=== PATIENT | female | born 1950 | race Caucasian/White ===

== ENCOUNTER 2024-11-04 09:17 | Outpatient (AMB) | payer MEDICARE, SELFPAY ==
--- NOTE | 2024-11-04 09:37 | A.OFFVIS_ITS ---
Intake Visit Reasons: last seen 2015 PN Allergies No Known Allergies Allergy (Verified 11/03/24 15:48) Medication List - Last Reconciled 11/04/24 by Prema Velasquez MD desmopressin 0.2 mg PO BEDTIME famotidine 40 mg PO BEDTIME flecainide mg PO Q12H folic acid 0.4 mg PO DAILY gabapentin 100 mg PO BID lorazepam mg PO DAILY methotrexate sodium 15 mg PO QWEEK metoprolol succinate ER 50 mg PO DAILY quetiapine 50 mg PO BEDTIME quetiapine 25 mg PO BEDTIME HPI Comments Details: This is 74-year-old generally healthy woman with a history of anxiety who comes in Pain in both knees that has been painful. 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 She is in no pain generally unless she touches or squeezes it with her hand from mid thigh down. 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 In the pat she had insomnia since August 2014 which has resolved. She has some elements of depression. She has tried Ambien, Ambien CR, Lunesta and Sonata without relief. For 8 years she had been on Benadryl 50 mg at bedtime for sleep. [facility] Medical History (Updated 11/04/24 @ 10:09 by Prema Velasquez MD) Chidi syndrome APS (antiphospholipid syndrome) Other specified disorders involving the immune mechanism, not elsewhere classified Chronic fatigue, unspecified Insomnia Surgical History (Updated 11/04/24 @ 10:09 by Prema Velasquez MD) History of eye surgery Social History (Updated 11/02/24 @ 23:34 by Cassie Ko MA) Patient Tobacco Use Status: Never used Tobacco Review of Systems Const Details: Sleep Difficulty getting to sleep?denies.?Difficulty maintaining sleep?denies?.?Urge to move legs?denies.?Teeth grinding?denies.?Shouting or Kicking during sleep ?denies.?Abnormal behavior during sleep?denies.?Excessive sleep?denies.?Snoring ?denies.?Daytime sleepiness?denies. ? General/Constitutional Change in appetite?denies.?Chills?denies.?Fatigue?denies.?Fever?denies.?Weight gain?denies.?Weight loss?denies. ? Ophthalmologic Blurred vision?denies.?Diminished visual acuity?denies. ? ENT Stuffiness?denies.?Decreased hearing?denies.?Dry mouth?denies.?Ear pain ?denies.?Nosebleed?denies.?Ringing in the ears?denies.?Sinus pain?denies.?Sore throat?denies.?Swollen glands?denies. ? Endocrine Cold intolerance?denies.?Excessive thirst?denies.?Frequent urination?denies.? Heat intolerance?denies. ? Respiratory Shortness of breath?denies.?Chest pain?denies.?Cough?denies. ? Breast Breast lump?denies.?Nipple discharge?denies. ? Cardiovascular Chest pain at rest?denies.?Chest pain with exertion?denies.?Claudication ?denies.?Dizziness?denies.?Fluid accumulation in the legs?denies.?Irregular heartbeat?denies.?Palpitations?denies. ? Gastrointestinal Abdominal pain?denies.?Constipation?denies.?Diarrhea?denies.?Difficulty swallowing?denies.?Heartburn?denies.?Nausea?denies.?Rectal bleeding?denies. ? Hematology Easy bruising?denies.?Prolonged bleeding?denies. ? Genitourinary Frequent urination?denies.?Urgency?denies.?Incontinence?denies.?Erectile Dysfunction?denies. ? Musculoskeletal Neck pain?denies.?Back pain?denies.?Muscle aches?denies.?Painful joints?yes.? Sciatica?denies.?Weakness?denies. ? Podiatric Difficulty walking?denies.?Foot numbness?denies. ? Neurologic Difficulty swallowing?denies.?Balance difficulty?denies.?Coordination?normal.? Difficulty speaking?denies.?Dizziness?denies.?Fainting?denies.?Gait abnormality ?denies.?Headache?denies.?Loss of strength?denies.?Loss of use of extremity ?denies.?Low back pain?denies.?Memory loss?denies.?Seizures?denies.?Tics ?denies.?Tingling/Numbness?denies.?Transient loss of vision?denies.?Tremor ?denies. ? Psychiatric Anxiety?denies.?Auditory/visual hallucinations?denies.?Delusions?denies.? Depressed mood?denies.?Stressors?denies.?Substance abuse?denies.?Suicidal thoughts?denies. Physical Exam Neuro Other: Abnormal neurological findings:?blunting of pin prick in left foot and impaired vibration. Collapsed arches on left. Decreased left ankle reflex. Mental Status:alert and oriented X 3,?Normal attention, orientation, memory and affect. Cranial Nerves:Pupils are equal, round and reactive to light. Fundoscopy shows normal disc bilaterally. External occular muscles are intact. Visual dinero are full, no ptosis. Face is symmetrical, no facial weakness or droop. Facial sensations are normal. Tongue protrudes in midline. Palate elevates symmetrically. Shoulder shrugging is normal.. Motor Examination:Normal muscle tone, bulk and strength,?No atrophy or fasciculations,?No drift of the extended upper extremities,?Deep tendon reflexes are 2+ diminishe dleft ankle reflex?,?Plantars are flexor?. Motor Strength: ? Proximal Muscles (out of 5): ?5 ? Distal Muscles (out of 5): ?5 ? Neck Flexors (out of 5): ?5 ? Neck Extensors (out of 5): ?5 ? Deltoid (out of 5): ?5 ? Biceps (out of 5): ?5 ? Triceps (out of 5): ?5 ? Serratus Anterior (out of 5): ?5 ? Wrist Extensors (out of 5): ?5 ? APB (out of 5): ?5 ? Finger Spread (out of 5): ?5 ? Ileopsoas (out of 5): ?5 ? Quadriceps (out of 5): ?5 ? Hamstrings (out of 5): ?5 ? Tibialis Anterior (out of 5): ?5 ? Peronei (out of 5): ?5 ? EDB (out of 5): ?5 ? Gastrocnemius (out of 5): ?5 Straight Leg Raisin degrees. Sensory Exam: As above, otherwise Normal light touch, temperature, pinprick, vibration and joint-position sensations?,?Rhomberg sign is absent. Coordination:no ataxia,?no titubation,?[id number], [id number] test and rapid alternating movements were normal. Gait Exam:Within normal limits. Cerebellar Signs:Lqxnae-[id number]-idue and male-ec-wmvo is normal,?no dysdiadochokinesia?. Extrapyramidal System:No tremor, rigidity with normal facial expressions,?No bradykinesia, no bradyphrenia. Normal arm swing and posture. No propulsion or retropulsion. Speech:Normal,?no dysphasia or dysarthria.. Mini Mental Status Exam: Level of Consciousness:Alert. Orientation:Knows correct year, month, date, day and season,?Knows correct city, county and state. Knows correct location and floor. Registration:Able to register 3 objects. Attention:Serial 7's performed accurately. Recall:Able to recall 3 out of 3 objects. Language:Normal spontaneous speech, fluency, repetition,naming, comprehension, reading and writing. Total Score 30/30. General Examination: GENERAL APPEARANCE:normal,?in no acute distress. HEAD:normocephalic,?atraumatic. EYES:sclera non-icteric,?conjunctiva clear. EARS:auditory canal clear,?tympanic membrane intact, clear. NOSE:no lesions. ORAL CAVITY:gums normal,?mucosa moist,?no lesions. THROAT:clear. NECK/THYROID:no cervical lymphadenopathy,?thyroid normal,?neck supple, full range of motion,?no carotid bruit. SKIN:no rashes,?no significant birthmarks. HEART:S1, S2 normal,?no murmurs. LUNGS:clear anteriorly and posteriorly. CHEST:no gross rib deformity,?clear to auscultation. BACK:normal exam of spine. EXTREMITIES:no edema. PERIPHERAL PULSES:normal. PSYCH:alert, oriented,?cognitive function intact,?cooperative with exam. Assessments Assessment & Plan Assessment & Plan (1) Peripheral neuropathy: Code(s): G62.9 - Polyneuropathy, unspecified Category: Medical (2) Rheumatoid arthritis: Code(s): M06.9 - Rheumatoid arthritis, unspecified Category: Medical (3) Osteoarthritis of knees, bilateral: Code(s): M17.0 - Bilateral primary osteoarthritis of knee Category: Medical Plan Gradually increase Gabapentin to 300mg tid. Add meloxicam for the knee pain Medications: New gabapentin 300 mg PO TID 90 caps 5RF 30 days meloxicam 15 mg PO DAILY 30 tabs 2RF 30 days Coding Level of Care Code New Pt Level 5 (55996) Diagnoses Peripheral neuropathy G62.9 Rheumatoid arthritis M06.9 Osteoarthritis of knees, bilateral M17.0
--- OUTSIDE RECORDS SUMMARY | 2024-11-04 09:42 | XMS_ITS | Data Portability ---
Author Organization [place] [facility] Arsen Wray [facility] [place] Address [address] [place] [address] Care Team Providers Care Geological Sample Tester Name Role Phone AYDEE VARGAS Primary Care Provider AYDEE VARGAS Primary Care Provider Assessment Encounter Date Assessment Date Assessment LastModified by Organization Details LastModified Time 01/09/2023 01/09/2023 HPI : Patient is doing well 2 weeks status post right TKA. They deny fever, chest pain and shortness of breath. They are compliant with anticoagulation protocol. She has not encountered any problems and is pleased with the results of her surgery so far. She has done home physical therapy and will be switching over to outpatient PT. She is using only Tylenol and meloxicam for pain control and is compliant with aspirin for DVT prophylaxis. Physical Exam : Patient is well nourished, well- developed, in no acute distress, with appropriate mood and affect. The patient demonstrates good knee motion and strength. The incision is clean and dry with no sign of infection. Negative calf tenderness and Ilia's sign. Range of motion is from 0-120 degrees. Assessment/Plan : The patient is doing well 2 weeks from total knee arthroplasty. Continue 28 day course of anticoagulation therapy. The patient will do physical therapy and return for follow-up in 1 month for re-evaluation; sooner with any problems. Not available 01/09/2023 14:07:26 02/06/2023 02/06/2023 HPI : Patient is here for a 6 week follow-up from a right TKA. She is recovering well. She is walking without assist device. She is getting above 120 degrees of flexion with physical therapy. She is happy with her progress. She still does have some nighttime pain. She is still having some discomfort with certain motion. Physical Exam : Patient is well nourished, well- developed, in no acute distress, with appropriate mood and affect. The patient is AAOx3. The patient demonstrates good knee motion and strength. The incision is well healed.Right knee range of motion 0 to 125 degrees. Assessment/Plan : The patient is functioning well 6 weeks from total knee arthroplasty. Continue physical therapy as needed. Return for follow-up in 2 months with x-rays at that time. X-rays will be of the bilateral knees, because that will also be about 1 year follow-up from her left total knee. Not available 02/06/2023 15:06:39 04/03/2023 04/03/2023 HPI : Patient is here for 1 year follow-up for a LEFT total knee replacement and 3-1/2 months status post right-sided total knee arthroplasty. Patient reports good pain relief in the knee and satisfactory yarsani of function in terms of activities of daily living. Current condition is improved relative to their pre operative condition. They have not encountered any major problems since their last office visit. She is very pleased with the mid and long-term results of her right and left knee replacement arthroplasties, respectively. She has not encountered any problems. She is back to high level of comfort and function. Physical Exam : Patient is well nourished, well-developed, in no acute distress, with appropriate mood and affect. The patient is oriented to time, place, and person. Respirations are even and unlabored. The affected limbs are well-perfused, with well healed skin incision. The patient demonstrates good knee motion, stability, and strength. The knees move from 0-130 degrees. Muscle strength is normal. Pedal pulses are palpable. Assessment/Plan : This patient is functioning well after total knee arthroplasty. Continue knee conditioning exercises. [id number] medications as needed. The patient understands that ultimate failure may occur due to mechanical wear, loosening or breakage. Follow-up at approximately one year post-op for the right knee and 5 years postop for the left knee is recommended to assess for the possibility of failure. Follow up sooner with any problems. A total of 30 minutes were spent reviewing previous charting, obtaining history and physical exam, and reviewing treatment plan. This patient was seen and evaluated by Chad Garner MS, RIMA in indirect conjunction with documenting/[facility] provider Tyrone Limon MD. He agrees with history, physical examination, tests/diagnostic imaging, and treatment plan. Not available 04/03/2023 11:15:48 09/12/2023 09/12/2023 HPI : Patient is here for follow-up for her staged bilateral total knee replacements. She is about 2 years from the left total knee replacement. She is about 1 year from the right total knee replacement. She notes that the pain she had preoperatively is gone. She has different pain and she is not sure if some of this pain was there before surgery. The pain goes from the thigh down to the ankle. She is sensitive to the touch throughout this area. She does not have a history of lumbar spine issues. Physical Exam : Patient is well nourished, well-developed, in no acute distress, with appropriate mood and affect. The patient is oriented to time, place, and person. Respirations are even and unlabored. There is no inguinal adenopathy. The affected right limb is well-perfused, with well healed skin incision. The patient demonstrates good knee motion, stability, and strength. The knee moves from 0-125 degrees. The alignment of the knee is neutral. Muscle strength is normal. Pedal pulses are palpable. The affected left limb is well-perfused, with well healed skin incision. The patient demonstrates good knee motion, stability, and strength. The knee moves from 0-125 degrees. The alignment of the knee is neutral. Muscle strength is normal. Pedal pulses are palpable. Hip examination, including flexion and internal rotation, was negative in that groin pain was not produced. Assessment/Plan : Patient is doing well in regards to her staged bilateral total knee replacement. Exam, imaging, and history do not show any signs of implant related issues including loosening, malposition, instability, periprosthetic fracture, or infection. I discussed with her that I do not think her issues are coming from the knee replacements. She is actually in agreement with this. Knee replacements typically would not cause pain radiating from the thigh to the ankle. I am recommending that she gets evaluated by our spine team with further workup from there. Not available 09/12/2023 14:29:22 10/01/2023 10/01/2023 Generally health y 73-year-old woman referred by Dr. Limon for evaluation of her lumbar spine. She is status post bilateral total knee arthroplasty. She has issues with tenderness throughout her lower extremities. She has bilateral knee pain. The pain is not worse with standing or walking. She has had variable low back pain for decades. She denies numbness or tingling in her legs. She does not perceive focal lower extremity weakness. She has no difficulty sleeping. She has no sphincter disorder. She denies fever chills sweats or unexplained weight loss. As noted she has had decades of intermittent nondisabling low back pain. She underwent a left total knee arthroplasty about a year ago. Her right knee was done approximately 6 months ago. Since then she has noted the tenderness. She also had some improvement of the left knee until after the right knee and now both her great deal. She notes are particularly problematic if she hits them against anything. Dr. Limon felt the implants were not problematic. Physical examination: She has a normal examination. She has 2 well-healed knee incisions. She has no weakness or tension sign. She has no pathologic reflexes. She is diffusely tender about the knees and her lower extremities. She has no true bony tenderness. I do not believe her pain is related to her spine. She has diffuse tenderness including muscular tenderness. She does not use statins. She sees a bulk gas specialist for osteoarthritis. I suggest she return to see the bulk gas specialist and ask the physician to evaluate for the possibility of inflammatory muscle or joint disease. She will continue to follow-up with Dr. Limon. No specific return appointment is scheduled with the spine service [email or web address] Not available 10/01/2023 15:00:39 Plan of Treatment Reminders Order Date Submit Date Provider Last Modified By Organization Details Last Modified Time Details Appointments None recorded. Lab None recorded. Referral None recorded. Procedures None recorded. Surgeries None recorded. Imaging XR, lumbosacral spine, 2 or 3 view, bending only 2023 024 [email or web address] [facility], [address], [place], [address], 09:49:21 XR, knee, 3 view 2023 024 [facility], [address], [place], [address], 4 15:30:15 XR, knee, 3 view 2023 024 [facility], [address], [place], [address], 4 15:30:15 XR, knee, 3 view 2022 023 [facility], [address], [place], [address], 3 11:21:57 XR, knee, 3 view 2022 023 [facility], [address], [place], [address], 3 11:21:57 Medication Orders None recorded. Patient TargetsNo targets recorded. Patient Instructions Encounter Date Encounter Id Patient Instructions Last Modified By Organization Details Last Modified Time 01/09/2023 [id number] physical therapy * - Diagnosis:s/p R TKA Evaluate and treat as indicated to reduce pain and to improve mobility, range of motion, and function. Please teach a home exercise plan and incorporate PT into patient's exercise routine. 2-3 sessions weekly for 6 weeks. [email or web address] Not available 01/16/2023 07:18:58 04/03/2023 [id number] Bilat knee X-ray series does not show any signs of implant related issues including loosening, malposition, instability, periprosthetic fracture, periosteal reaction or infection. Not available 04/03/2023 11:16:08 09/12/2023 [id number] AP, lateral, and patellar radiographs of the left knee taken today demonstrate satisfactory position and alignment of components following left total knee replacement. AP, lateral, and patellar radiographs of the right knee taken today demonstrate satisfactory position and alignment of components following right total knee replacement. Not available 09/12/2023 14:29:30 10/01/2023 [id number] Radiographs AP a nd flexion-extension lateral radiographs lumbosacral spine were obtained in the [facility] facility today. The images represent age-related normal radiographs with maintenance of disc space. There is no meaningful deformity. There is no evidence of tumor fracture or infection. [email or web address] Not available 10/01/2023 14:59:11 Reason for Referral None Reported. Problems Name Problem SNOMED Code Status Onset Date Resolution Date Notes Provider Name and Address Organization Details Recorded Time Osteoarthri tis of right knee joint 1940510734399 00 Active 2022 Tyrone Limon MD [address], [place], [address], [place] [facility] 3 12:06:11 History of right total knee replacement 0377348187427 102 Active 2022 CHAD GARNER PA-C [address], [place], [address], [place] [facility] 3 14:06:09 Tenderness of skeletal muscle 77894463 Active 2023 Jassi Nix MD [address], [place], [address], [place] [facility] 4 15:01:31 Pain of knee region 8798972700 Active 2023 Jassi Nix MD [address], [place], [address], [place] [facility] 4 15:02:20 Arthritis of knee 497443864 Active 2022 CHAD GARNER PA-C [address], [place], [address], [place] [facility] 3 14:35:17 Problem Notes None recorded. Procedures Surgical History Date Name Laterality Status Provider Name and Address Organization Details Recorded Time Knee Surgery completed Quyen Melendrez [place] - [facility] 02/06/2023 14:54:37 Knee Surgery completed Quyen Melendrez [place] [facility] 02/06/2023 14:54:37 Hysterectomy completed Virginiamarylou Nicholstino [place] [facility] 10/27/2022 11:44:02 arthroscopy of knee completed [facility] [place] [facility] 10/27/2022 11:46:57 Imaging Results None recorded. Procedure Notes None recorded. Medical Equipment None Reported. Allergies No known drug allergies Medications Name Sig Start Date Stop Date Status Note LastModified by Organization Details LastModified Time celecoxib 200 mg capsule 01/31 completed Not Available Not Available Not Available naproxen 375 mg tablet TAKE 1 TABLET BY MOUTH TWICE DAILY 01/31 completed Not Available Not Available Not Available clindamycin HCl 300 mg capsule TAKE 1 CAPSULE BY MOUTH FOUR TIMES DAILY FOR 10 DAYS 09/11 completed Not Available Not Available Not Available cetirizine 10 mg tablet TAKE 1 TABLET BY MOUTH DAILY active Not Available Not Available No t Available ofloxacin 0.3 % eye drops INSTILL 1 DROP IN RIGHT EYE FOUR TIMES DAILY 09/11 completed Not Available Not Available Not Available metoprolol succinate ER 50 mg tablet,exte nded release 24 hr TAKE 1 TABLET BY MOUTH DAILY active Not Available Not Available No t Available valacyclovi r 1 gram tablet 09/07 completed Not Available Not Available Not Available meloxicam 15 mg tablet TAKE 1 TABLET BY MOUTH DAILY. STOP NAPROXEN AND CELECOXIB 04/03 completed Not Available Not Available Not Available ondansetron HCl 4 mg tablet 10/02 completed Not Available Not Available Not Available famotidine 40 mg tablet TAKE 1 TABLET BY MOUTH DAILY AT NIGHT active Not Available Not Available No t Available prednisone 20 mg tablet TAKE 1 TABLET BY MOUTH TWICE DAILY FOR 5 DAYS 09/11 completed Not Available Not Available Not Available alendronate 70 mg tablet TAKE 1 TABLET BY MOUTH EVERY 7 DAYS active Not Available Not Available No t Available desmopressi n 0.2 mg tablet TAKE ONE TABLET BY MOUTH AT BEDTIME active Not Available Not Available No t Available triamcinolo ne acetonide 0.5 % topical ointment APPLY TOPICALLY TO THE AFFECTED AREA TWICE DAILY FOR 14 DAYS 01/31 completed Not Available Not Available Not Available folic acid 400 mcg tablet TAKE 1 TABLET BY MOUTH EVERY DAY active Not Available Not Available No t Available doxycycline monohydrate 100 mg tablet TAKE 1 TABLET BY MOUTH TWICE DAILY FOR 7 DAYS 09/11 completed Not Available Not Available Not Available cefadroxil 500 mg capsule 01/31 completed Not Available Not Available Not Available prednisolon e acetate 1 % eye drops,suspe nsion SHAKE BOTTLE AND INSTILL 1 DROP INTO THE RIGHT EYE EVERY MORNING active Not Available Not Available No t Available lorazepam 0.5 mg tablet TAKE 1 TABLET BY MOUTH DAILY NEEDED FOR ANXIETY active Not Available Not Available No t Available methocarbam ol 750 mg tablet 01/31 completed Not Available Not Available Not Available chlordiazep oxide 25 mg capsule TAKE TWO CAPSULES BY MOUTH AT BEDTIME 01/31 completed Not Available Not Available Not Available methotrexat e sodium 2.5 mg tablet TAKE 6 TABLETS BY MOUTH 1 TIME A WEEK ON THE SAME DAY. STOP FOR ANY COLD OR INFECTION active Not Available Not Available No t Available trazodone 100 mg tablet 01/31 completed Not Available Not Available Not Available amitriptyli ne 10 mg tablet 01/31 completed Not Available Not Available Not Available prednisone 2.5 mg tablet TAKE 3 TABLETS BY MOUTH EVERY DAY 09/07 completed Not Available Not Available Not Available pantoprazol e 40 mg tablet,bobby yed release TAKE 1 TABLET BY MOUTH TWICE DAILY 09/11 completed Not Available Not Available Not Available erythromyci n 5 mg/gram (0.5 %) eye ointment APPLY TO LEFT EYE TWICE DAILY DIRECTED 09/07 completed Not Available Not Available Not Available esomeprazol e magnesium 40 mg capsule,del ayed release TAKE ONE CAPSULE BY MOUTH EVERY DAY IN THE MORNING BEFORE BREAKFAST 01/31 completed Not Available Not Available Not Available flecainide 50 mg tablet TAKE 2 TABLETS BY MOUTH IN THE MORNING AND 1 TABLET IN THE EVENING active Not Available Not Available No t Available betamethaso ne dipropionat e 0.05 % topical cream APPLY TOPICALLY EVERY MORNING AND EVERY EVENING FOR RED PATCHES ON CHEST FOR 10 TO 14 DAYS 09/07 completed Not Available Not Available Not Available mupirocin 2 % topical ointment APPLY 1 A SMALL AMOUNT IN THE NASAL CAVITY 3 TIMES DAILY AFTER WARM COMPRESSE S 09/11 completed Not Available Not Available Not Available zolpidem 5 mg tablet TAKE 1 TABLET BY MOUTH AT BEDTIME NEEDED FOR INSOMNIA active Not Available Not Available No t Available hydroxyzine HCl 10 mg tablet TAKE 1 TABLET BY MOUTH AT BEDTIME NEEDED FOR ITCHING OR ANXIETY 09/11 completed Not Available Not Available Not Available ondansetron 4 mg disintegrat ing tablet 01/31 completed Not Available Not Available Not Available fluticasone propionate 50 mcg/actuati on nasal spray,suspe nsion active Not Available Not Available Not Available sertraline 50 mg tablet TAKE 1/2 TABLET BY MOUTH DAILY FOR 1 WEEK. INCREASE TO 1 TABLET DAILY 09/07 completed Not Available Not Available Not Available simethicone 80 mg chewable tablet CHEW 1 TABLET BY MOUTH DAILY NEEDED FOR GAS PAIN/BLOA TING active Not Available Not Available No t Available oxycodone 5 mg tablet TAKE 1 TABLET BY MOUTH EVERY 4 TO 6 HOURS NEEDED FOR POST OPERATIVE PAIN FOR UP TO 3 DAYS 09/11 completed Not Available Not Available Not Available escitalopra m 10 mg tablet TAKE 1 TABLET BY MOUTH DAILY. TAKE WITH 5MG TABLET FOR DAILY DOSE OF 15MG DAILY. 09/07 completed Not Available Not Available Not Available escitalopra m 5 mg tablet TAKE 1 TABLET BY MOUTH DAILY. TAKE WITH 10MG TABLET FOR TOTAL DOSE OF 15MG DAILY. 09/07 completed Not Available Not Available Not Available zolpidem ER 6.25 mg tablet,exte nded release,mul tiphase TAKE 1 TABLET BY MOUTH AT BEDTIME NEEDED FOR SLEEP 10/02 completed Not Available Not Available Not Available pantoprazol e DR 40 mg granules delayed-rel ease for susp in packet 10/02 completed Not Available Not Available Not Available Paxlovid 300 mg (150 mg x 2)-100 mg tablets in a dose pack TK 2 NIRMATREL VIR TS AND 1 RITONAVIR T TOGETHER PO BID FOR 5 DAYS BID FOR 5 DAYS 09/07 completed Not Available Not Available Not Available Miebo (PF) 100 % eye drops active Not Available Not Available Not Available Vitals Date Recorded Body height Body mass index (BMI) Body weight Provider Name and Address Organization Details Last Updated DateTime 10/01/2023 177.8 cm 23.8 kg/m2 [address]86.[address] [place] [facility] 10/01/2023 14:28:23 Date Recorded Body height Provider Name an d Address Organization Details Last Updated DateTime 02/06/2023 177.[address] [place] [facility] 02/06/2023 14:51:03 Date Recorded Body mass index (BMI) Body weight Provider Name and Address Organization Details Last Updated DateTime 02/06/2023 23.8 kg/m2 [address]34.[address] [place] [facility] 02/06/2023 14:54:30 Date Recorded Body height Body mass index (BMI) Body weight Provider Name and Address Organization Details Last Updated DateTime 04/03/2023 177.8 cm 23.8 kg/m2 [address]2001.[address] [facility] 04/03/2023 10:49:41 Social History None recorded. Functional Status None recorded. Mental Status None recorded. Family History Nothing Reported. Medical History Condition Response Rheumatoid Arthritis Y Gynecological HistoryNo gynecological history recorded. Obstetrics History GPAL:G 0 P 0 0 0 0 Past Encounters Encounter ID Performer Location Encounter Start Date Encounter Closed Date Diagnosis/Indication Diagnosis SNOMED-CT Code Diagnosis ICD10 Code Diagnosis Note [id number] RIMA MARTINEZ [address] [address] 09/12/2022 13:59:07 09/12/2022 16:00:12 Arthritis of knee 707693817 M13.869 [id number] MD BENITO Meneses [address] [address] 10/27/2022 11:23:37 10/27/2022 12:09:26 Osteoarthritis of right knee joint 3896945811 58990 M17.11 Arthritis of knee 098423 002 M13.869 [id number] [address] 01/09/2023 13:01:24 01/09/2023 14:08:00 History of right total knee replacement 6468954362 427521 Z96.651 [id number] MD BENITO Meneses [address] [address] 02/06/2023 14:43:29 02/06/2023 15:05:16 History of right total knee replacement 5916829577 281731 Z96.651 [id number] CHAD GARNER PA-C [address] [place] [address] 04/03/2023 10:47:31 04/03/2023 11:15:25 Pain of right knee joint 6284850964 61232 M25.561 Pain of le ft knee joint 2446136006 07179 M25.562 [id number] MD BENITO Meneses [facility] [address] [facility] [place] [address] 09/12/2023 13:30:30 09/12/2023 14:15:39 History of right total knee replacement 1547693981 714381 Z96.651 Additional diagnosis detail: History of total right knee replacemen t History of left total knee replacement 5751314340 690278 Z96.652 Additional diagnosis detail: History of total left knee replacemen t Surgical follow-up 44485 4000 Z47.1 Z96.651 Additional diagnosis detail: Aftercare following right knee joint replacemen t surgery [id number] Jassi Nix MD [address] [place] [address] 10/01/2023 14:20:19 10/01/2023 15:03:57 Low back pain 634705460 M54.50 Additional diagnosis detail: Lumbar pain Tenderness of skeletal muscle 32923432 M79.10 Additional diagnosis detail: Muscle tenderness History of operative procedure on knee 665747167 Z96.659 Additional diagnosis detail: History of arthroplas ty of knee Pain of knee region 1003 069257 M25.561 M25.562 G89.29 Additional diagnosis detail: Chronic pain of both knees Health Concerns Section Related Observation LastModified by Organization Detai ls LastModified Time None Recorded Concern Status LastModified by Organization Details LastModified Time None Recorded Advance Directives Directive None Recorded Payers Insurance Date Sequence Insurance Name Policy Number Policy Villarreal Covered Member ID Villarreal Member ID Guarantor Name 09/11/2023 1 [facility] (MEDICARE REPLACEMENT/A DVANTAGE - PPO) [id number] Crystal Burton [id number] Crystal Burton 08/30/2024 2 [place] [id number] Crystal Burton [id number] Crystal Burton 08/30/2024 1 [place] JONATHAN Burton [id number] Crystal Burton OBGyn Episode No OBEpisode recorded.
--- OUTSIDE RECORDS SUMMARY | 2024-11-04 09:42 | XMS_ITS | Patient Health Record ---
Author Organization [facility] Address [address] [place] [address] [place] [address] Care Team Providers Care Sr. Manager Name Role Phone Krista Galvan Primary Care Provider MAXIM Sweeney Unavailable [phone] Allergies Allergen (clinical drug ingredient) Drug/Non Drug Allergy documented on EMR Reaction Allergy Type Onset Date Status amoxicillin / clavulanate Augmentin Diarrhea, nausea,vomitting Drug Allergy Active Reason For Referral No Information Medications Medication SIG (Take, Route, Frequency, Duration) Notes Start Date End Date Status Gabapentin 100 MG 1 capsule Orally Three times a day Active Simethicone-80 Take 80mg by mouth Active Simethicone 80 MG 1 tablet after meals and at bedtime as needed Orally Four times a day Active Perfluorohexyloctane 1.338 GM/ML 1 drop into affected eye as needed Ophthalmic Four times a day Active DDAVP 0.2 MG as directed Orally Active Metoprolol Succinate ER 50 MG 1 tablet Orally Once a day Active Lexapro 10 MG 1 tablet Orally Once a day Active Pepcid 40 MG 1 tablet Orally Once a day Active Flecainide Acetate 50 MG as directed Orally Active Lactobacillus Take 100 Million PFU by mouth Active Ativan 0.5 MG 1 tablet at bedtime as needed Orally Once a day Active prednisoLONE Acetate 1 % 1 drop into affected eye Ophthalmic Twice a day Not-Taking Zolpidem Tartrate ER 6.25 MG 1 tablet at bedtime as needed Orally Once a day Not-Taking Tambocor 50 mg , take 1 tablet by mouth. 1 tab am and 2 tabs pm Not-Taking Fluticasone Propionate 50 MCG/ACT 1 spray in each nostril Nasally Once a day Not-Taking Multiple Vitamin - 1 tablet Orally Once a day Active Folic Acid 400 MCG 1 tablet Orally Once a day Active Methotrexate Sodium 2.5 MG as directed Orally Take 6 tablets by mouth , every Sunday Active Iron-Vitamin C 65-125 MG 1 tablet Orally Once a day Active Tylenol 8 Hour 650 MG 2 tablets as needed Orally every 8 hrs Active Calcium 600 MG 1 tablet with meals Orally Twice a day Active Problems Problem Type SNOMED Code ICD Code Onset Dates Problem Status W/U Status Risk Notes Problem [id number] Acquired hallux rigidus of right foot (M20.21) Active confirmed Problem 464689737 Rheumatoid arthritis involving multiple sites with positive rheumatoid factor (M05.79) Active confirmed Problem [id number] 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 Vital Signs Weight 164.3 lbs 01/08/2024 Encounters Encounter Location Date Provider Diagnosis [facility] [address] 01/08/2024 MAXIM CROOKS Arthrosis of left midfoot M19.072 ; Varus deformity of left great toe M20.32 ; Acquired pes planovalgus of left foot M21.42 ; Acquired hallux rigidus of right foot M20.21 ; Acquired deformity of right toe M20.61 and Rheumatoid arthritis involving multiple sites with positive rheumatoid factor M05.79 [facility] [address] [id number] 12/26/2023 MAXIM CROOKS Assessments Encounter Date Diagnosis (ICD Code) Assessment Notes Treatment Notes Treatment Clinical Notes Section Notes 01/08/2024 Arthrosis of left midfoot (ICD-10 - M19.072) 01/08/2024 Varus deformity of left great toe (ICD-10 - M20.32) 01/08/2024 Acquired pes planovalgus of left foot (ICD-10 - M21.42) 01/08/2024 Acquired hallux rigidus of right foot (ICD-10 - M20.21) 01/08/2024 Acquired deformity of right toe (ICD-10 - M20.61) 01/08/2024 Rheumatoid arthritis involving multiple sites with positive rheumatoid factor (ICD-10 - M05.79) This is an outpatient visit for evaluation and management of a new patient, which required appropriate review of pertinent medical history, review of any previous imaging, review of all previous records, and examination and decision-making. Time was 35 minutes spent in review of all these facets including face to face discussion with the patient regarding my findings and in discussion of a current and future treatment plan. Ms. Burton presents with complex deformity to the left forefoot and rearfoot with significant degenerative changes. She also has a complex medical history likely contributing to her progressive deformity. Unfortunately the only way the her deformities could be corrected would be with extensive surgery that would involve fusion her midfoot and rearfoot followed by a wheat marli procedure to the forefoot. This would require a very lengthy period of recovery and in the setting of her RA, neuropathy, and osteoporosis would have significant risk of failure. I discussed that to correct the toe deformity on the right she would also need a fusion of the 1st MTP and this again would come with risk and a lengthy recovery. I advise that she continue to use accommodative foot wear and spacers and avoid the risk of surgery at this time. She understood and will contemplate her options. I encouraged her to call if she has any questions or concerns. Plan Of Treatment No Information Insurance Providers Payer Name Payer Address Payer Phone Subscriber Number Group Number Insured Name Patient Relationship to Insured Coverage Start Date Coverage End Date Medicare of [place] [address] [place] [phone] [id number] GENAROCrystal Self - patient is the insured [employer] [facility] [address] [place] [address] [phone] [id number] Crystal BURTON Self - patient is the insured Medical (General) History Medical History History ICD Code Insomnia Paroxysmal atrial fibrillation osteoporosis Moderate episode of recurrent major depr essive disorder Presbyesophagus Seropositive rheumatoid arthritis (RF an d CCP Positive) Arthritis of both hands Esophageal reflux Arthritis of both knees SVT (supraventricular Tachycardia) Hx of Mycoplasma infection Gallstones Pulmonary nodules Pleural thickening allergic rhinitis Former smoker Glaucoma Hypoglycemia Hx of Aseptic Meningitis multiple times Peripheral neuropathy lower extremities Surgical History Surgery Date(Month/Year) Bilateral Knee Arthrocopy 11/2020 Cataract removal [place]; OD colonoscopy 11/16/2014 colonoscopy 09/2004 colonoscopy 02/07/2019 Bunion surgery left foot 2nd toe pin 200 2 Hysterectomy 09/2017 Left knee arthroscopy 2018 Tubal ligation [place] Unlisted Procedure Anterior Segment E ye 10/06/2006 [place] CORRJ HLX VLGS BNCTY SESMDC W/DOUBLR OSTEOTOMY [place] Unlisted Procedure Hands/ Fingers- for cystic swelling in right wrist-tenosynovitis [place] Upper GI Endoscopy preformed 11/17/19 15 [place] Upper GI Endoscopy preformed 02/08/20 19
--- OUTSIDE RECORDS SUMMARY | 2024-11-04 09:42 | XMS_ITS | Clinical Summary ---
Author Organization [facility] Address [address] [place] [address] Care Team Providers Care Wheel Braider Name Role Phone Krista Galvan MD Primary Care Provider [phone] Allergies Active Allergy Reactions Criticality Noted Date Comments Amoxicillin-Pot Clavulanate Other (See Comments) Low 04/14/2019 Diarrhea, nausea, vomitting Doxycycline Hives Medium 09/12/2019 Hives Medications Medication Sig Dispensed Refills Start Date End Date Status Multiple Vitamin (Multi Vitamin Daily) TABS Take by mouth daily. 0 Active metoprolol succinate (TOPROL-XL) 24 hr tablet 50 mg Take 1 tablet (50 mg total) by mouth daily. 0 01/19/2021 Active desmopressin (DDAVP) 0.2 MG tablet Take 1 tablet (200 mcg total) by mouth every night at bedtime. For OAB 0 Active folic acid (FOLVITE) 400 MCG tablet Take 1 tablet (400 mcg total) by mouth daily. 0 09/24/2021 Active Zinc 30 MG CAPS Take 15 mg by mouth daily. FORMENTED ZINC COMPLEX 0 Active flecainide (TAMBOCOR) 50 MG tablet 2 tablets (100 mg total) every night at bedtime. 0 01/04/2022 Active clindamycin (CLEOCIN) 300 MG capsule Take 2 tabs one hour prior to dental procedure 2 capsule 3 04/25/2022 Active Calcium 600-5 MG-MCG TABS Take 1 tablet by mouth 2 (two) times a day. 0 08/21/2022 Active prednisoLONE acetate (PRED FORTE) 1 % ophthalmic suspension SHAKE LIQUID AND INSTILL 1 DROP IN RIGHT EYE THREE TIMES DAILY 0 09/18/2022 Active methotrexate 2.5 MG tablet Take 6 tablets (15 mg total) by mouth every 7 days. EVERY SUNDAY 0 Active IRON-VITAMIN C PO Take 125 mg by mouth daily. 0 Active Zolpidem Tartrate (AMBIEN CR PO) Take 6.25 mg by mouth every night at bedtime as needed. 0 Active pantoprazole (PROTONIX) 40 MG tablet Take 1 tablet (40 mg total) by mouth daily. 0 11/28/2022 Active simethicone (MYLICON) 80 MG chewable tablet Chew 1 tablet (80 mg total) by mouth as needed. 0 11/28/2022 Active methocarbamol (ROBAXIN) 750 MG tablet Take 1 tablet (750 mg total) by mouth 4 (four) times a day as needed (for muscle spasm.). 40 tablet 0 12/21/2022 Active oxyCODONE (ROXICODONE) 5 MG immediate release tablet Take 1 tablet (5 mg total) by mouth every 4 (four) hours as needed for pain. 40 tablet 0 12/21/2022 Active ondansetron (ZOFRAN-ODT) 4 MG disintegrating tablet Take 1 tablet (4 mg total) by mouth every 6 (six) hours as needed for nausea. 20 tablet 0 12/21/2022 Active ondansetron (ZOFRAN) 4 MG tablet TAKE 1 TABLET(4 MG) BY MOUTH DAILY NEEDED FOR NAUSEA 30 tablet 2 12/27/2023 Active famotidine (PEPCID) 40 MG tabletIndications:Brianna terrance ulcer, unspecified chronicity, unspecified whether gastric ulcer hemorrhage or perforation present TAKE 1 TABLET BY MOUTH DAILY AT NIGHT 30 tablet 5 02/25/2024 Active Active Problems Problem Noted Date Diagnosed Date Epigastric pain 03/01/2023 History of anemia 11/22/2022 Anxiety and depression 11/22/2022 Glaucoma 11/22/2022 Overactive bladder 11/22/2022 History of gastroesophageal reflux (GERD) 2022 History of hypertension 11/22/2022 History of hyperlipidemia 11/22/2022 Bruising 10/17/2021 Abnormal platelet function 10/17/2021 Rheumatoid arthritis involvi ng multiple sites with positive rheumatoid factor 10/17/2021 Seropositive rheumatoid arthritis 02/08/2021 Overview: RF and CCP positive Esophageal reflux 11/12/2017 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 Mukesh Costello ([facility]), treated on chronic Clarithromycin Disorder of bone and cartilage 04/19/2005 Other specified hypoglycemia 04/19/2005 Viral meningitis 04/19/2005 Overview: several times Immunizations Name Administration Dates Next Due Covid-19 ([email or web address]) Dilution Required 11/2021,08/10/2021,03/21/2021,08/21/19,07/23/2020 Family History Medical History Relation Name Comments Arthritis Brother Cancer Daughter Heart disease Father Kidney disease Father Arthritis Mother Arthritis Sister 1 Arthritis Sister 2 Alcohol abuse Sister 3 Arthritis Sister 3 Relation Name Status Comments Brother Alive Daughter Alive Father (Age 68) Mother (Age 94) Sister 1 Alive Sister 2 Alive Sister 3 Social History Tobacco Use Types Packs/Day Years Used Date Smoking Tobacco: Former Cigarettes 1 2013 Smokeless Tobacco: Never Alcohol Use Standard Drinks/Week Comments Not Currently 0 (1 standard drink = 0.6 oz pur e alcohol) Sex and Gender Information Value Date Recorded Sex Assigned at Female 01/06/2022 2:44 PM EDT Gender Identity Female 01/06/2022 2:44 PM EDT Sexual Orientation Straight 01/19/2022 7: 24 AM EDT Job Start Date Occupation Industry Not on file Not on file Not on file Last Filed Vital Signs Vital Sign Reading Time Taken Comments Blood Pressure 172/74 01/28/2024 10:15 PM EDT Pulse 62 01/28/2024 11:45 PM EDT Temperature 36.6 C (97.9 F) 01/28/2024 10:15 PM EDT Respiratory Rate 18 01/28/2024 11:45 PM EDT Oxygen Saturation 99% 01/28/2024 11:45 PM EDT Inhaled Oxygen Concentration - - Weight 72.6 kg (160 lb) 01/28/2024 10:15 PM EDT Height 177.8 cm (5' 10 ) 01/28/2024 10:15 PM EDT Body Mass Index 22.96 01/28/2024 10:15 PM EDT Plan of Treatment Health Maintenance Due Date Last Done Comments Hepatitis C Screening 1950 Depression Screening 1964 Preventative Health Evaluation 01/01/1970 Colon Cancer Screening (Colonoscopy) 01/01/1997 Breast Cancer Screening (Mammogram) 01/01/2002 Fall Risk Assessment 01/01/2017 Osteoporosis Screening (DEXA Scan) 01/01/2017 COVID-19 Vaccine ( season) 2023 01/05/2022, 08/10/2021, 03/21/2021, Additional history exists Influenza Vaccine (#1) 2024 , 01/27/2021, 12/24/2019, Additional history exists RSV Adult > 60+ Yrs or (1 - 1-dose 75+ series) 01/01/2027 DTap / Tdap / Td (3 - Td or Tdap) 08/22/2032 08/22/2022, 07/05/2012, 03/11/2004 Pneumococcal Vaccine Completed 03/13/2018, 02/21/20 17 Shingrix-Zoster Vaccine Completed 01/26/2020, 11/26 Hepatitis B Vaccines Aged Out No long er eligible based on patient's age to complete this topic RSV Ped < 20 months Aged Out No longe r eligible based on patient's age to complete this topic Medical Devices Implanted Type Area Cleaner Laboratory Equipment Device Identifier Shelf Expiration Date Model / Serial / Lot Cement Bone Surg Simplex Radiopq Stry-Howm 7506-4-239-114 092 - [id number] Implanted:Qty: 1 on 01/19/2022 by Tyrone Limon MD at [facility] and [facility] Left: Knee [employer] [id number] 03/29/2023 6191-1-010 / / [id number] Cement Bone Surg Simplex Radiopq Stry-Howm 5036-2-645-114 092 - [id number] Implanted:Qty: 1 on 01/19/2022 by Tyrone Limon MD at [facility] and [facility] Left: Knee [employer] [id number] 03/29/2023 6191-1-010 / / [id number] Tibial Bearing Insert Cs 12mm Stry-Howm 3209-B-150-E-7 93582 - [id number] Implanted:Qty: 1 on 01/19/2022 by Tyrone Limon MD at [facility] and [facility] Left: Knee [employer] [id number] 05/23/2026 5531-G-412 -E / / [id number] Knee Tib Baseplate Sz 4 Rt-Lt Stry-Howm 4922-F-702-545 913 - [id number] Implanted:Qty: 1 on 01/19/2022 by Tyrone Limon MD at [facility] and [facility] Left: Knee [employer] [id number] 09/21/2026 5521-B-400 / / [id number] Knee Compon Fem Cmnt Sz4 L Stry-How 1040-E-[id number] 181 - [id number] Implanted:Qty: 1 on 01/19/2022 by Tyrone Limon MD at [facility] and [facility] Left: Knee [employer] [id number] 08/21/2026 5510-F-401 / / [id number] Knee Pat Asymmetric X3 [id number] Stry-Howm 8687-T-438-E-2 71917 - [id number] Implanted:Qty: 1 on 01/19/2022 by Tyrone Limon MD at [facility] [place] and [facility] Left: Knee [employer] [id number] 10/05/2026 5551-G-320 -E / / [id number] Knee Tib Baseplate Sz 4 Rt-Lt Stry-Howm 1898-B-704-545 913 - [id number] Implanted:Qty: 1 on 12/20/2022 by Tyrone Limon MD at [facility] and [facility] Right: Knee [employer] [id number] 07/10/2027 5521-B-400 / / [id number] Knee Tib Insrt Cr-X3 [id number] Stry-Howm 9903-P-[id number] 525 - [id number] Implanted:Qty: 1 on 12/20/2022 by Tyrone Limon MD at [facility] and [facility] Right: Knee [employer] [id number] 10/13/2025 5530-G-411 / / [id number] Knee Pat Asymmetric X3 [id number] Stry-Howm 3126-C-053-E-2 74135 - [id number] Implanted:Qty: 1 on 12/20/2022 by Tyrone Limon MD at [facility] and [facility] Right: Knee [employer] [id number] 09/17/2027 5551-G-320 -E / / [id number] Cement Bone Surg Simplex Radiopq Stry-Howm 2207-9-741-114 092 - [id number] Implanted:Qty: 1 on 12/20/2022 by Tyrone Limon MD at [facility] and [facility] Right: Knee [employer] [id number] 04/29/2025 6191-1-010 / / [id number] Cement Bone Surg Simplex Radiopq Stry-Howm 6267-6-055-114 092 - [id number] Implanted:Qty: 1 on 12/20/2022 by Tyrone Limon MD at [facility] [place] and [facility] Right: Knee [employer] [id number] 04/29/2025 6191-1-010 / / [id number] Knee Compon Fem Cmnt Sz4 R Stry-Howm 6631-J-[id number] 182 - [id number] Implanted:Qty: 1 on 12/20/2022 by Tyrone Limon MD at [facility] and [facility] Right: Knee [employer] [id number] 10/04/2027 5510-F-402 / / [id number] Advance Directives For more information, please contact: [phone] Latest Code Status on File Code Status Date Activated Date Inactivated Comments Full Code 12/20/2022 1:22 PM 12/21/2022 5:31 PM This code status was ascertained in the following way: discussion with healthcare sales representative cash registers . Code Status History Code Status Date Activated Date Inactivated Comments Full Code 12/20/2022 8:45 AM 12/20/2022 1:22 PM This code status was ascertained in the following way: discussion with patient . Full Code 01/19/2022 9:37 AM 01/20/2022 9:46 PM This code status was ascertained in the following way: discussion with patient . Full Code 01/19/2022 7:17 AM 01/19/2022 9:37 AM This code status was ascertained in the following way: discussion with patient . Care Teams Wheel Braider Relationship Specialty Start Date End Date Krista Galvan MD [address] [place] [phone] PCP - General Internal Medicine 01/28/24
--- OUTSIDE RECORDS SUMMARY | 2024-11-04 09:42 | XMS_ITS | Clinical Summary ---
Author Organization [facility] Address [address] [place] [address] Phone Care Team Providers Care Safety Engineer Pressure Vessels Name Role Phone Liss Phelan NP Primary Care Provider [phone] Allergies Active Allergy Reactions Criticality Noted Date Comments Amoxicillin-Pot Clavulanate 04/14/20 19 Diarrhea, nausea, vomitting Doxycycline Hives Medium 09/12/2019 Hives Medications LORazepam (ATIVAN) 0.5 mg tablet TAKE 1 TABLET BY MOUTH DAILY NEEDED FOR ANXIETY 28 tablet 03/04/20 24 Active alendronate (FOSAMAX) 70 mg tablet Take 1 Tablet by mouth every 7 days. 01/28/20 24 Active gabapentin (NEURONTIN) 100 mg capsule Take 1 Capsule by mouth 3 times daily. 01/07/20 24 Active SIMETHICONE-80 ORAL Take 80 mg by mouth. Active desmopressin (DDAVP) 0.2 mg tablet Take 1 Tablet by mouth daily. 01/12/20 23 Active iron fum/vit C/ascorbate sod (IRON PLUS VITAMIN C ORAL) Take 125 mg by mouth daily. Active methotrexate 2.5 mg tablet Take 6 Tablets by mouth. Every Active acetaminophen (TYLENOL 8 HOUR) 650 mg 8 hr tablet Take 1 tablet by mouth every 8 hours as needed for Pain. 06/30/19 22 Active folic acid (FOLVITE) 400 mcg tablet Take 400 mcg by mouth daily. Active multivitamin with minerals (MULTIPLE VITAMIN-MINERA LS ORAL) Take by mouth. Activ e metoprolol succinate (TOPROL-XL) 50 mg 24 hr tablet Take 1 tablet (50 mg total) by mouth 1 (one) time each day. Do not crush or chew. 90 tablet 3 04/07/20 24 Active flecainide (TAMBOCOR) 50 mg tablet Take 1 tablet (50 mg total) by mouth 1 (one) time each day. And 2 tablets in the evening 270 tablet 3 05/08/19 25 Active QUEtiapine (SEROquel) 50 mg tablet 06/27/19 25 Active cycloSPORINE (RESTASIS) 0.05 % ophthalmic emulsion Administer 1 drop into both eyes 2 (two) times a day. 08/09/19 25 Active magnesium citrate solution Take by mouth 1 (one) time. Active famotidine (PEPCID) 40 mg tablet TAKE 1 TABLET BY MOUTH DAILY AT NIGHT 30 tablet 1 10/17/19 25 Active famotidine (PEPCID) 40 mg tablet TAKE 1 TABLET BY MOUTH DAILY AT NIGHT 30 tablet 1 08/22/19 25 025 Discontinued Active Problems Problem Noted Date Diagnosed Date COWAN (dyspnea on exertion) 05/13/2024 Presbyesophagus 03/21/2024 Peripheral polyneuropathy 01/07/2024 Assessment & Plan (09/10/2024 3:33 PM EDT): Ms. Burton describes bilateral leg pain to the touch. She does not have pain with walking except at the knees. She is neurologically intact. An MRI of the lumbar spine from [facility] dated July 11, 2024 shows mild multilevel degenerative changes without any significant stenosis in the canal or foramen. He did have an EMG and nerve conduction study performed by Dr. Garcia on December 25, 2023. 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 She does not have a history of diabetes or hypertension. I explained that she would be better served by seeing neurology as there is no surgical fix for her problem. She asked if I would refer her to Dr. Marina in [place]. I am happy to do so. She is welcome to follow-up with us on an as-needed basis. Insomnia 06/22/2023 Paroxysmal atrial fibrillation (CMS/HCC V24, CMS /HCC V28) 05/01/2023 Lightheaded 05/01/2023 Epigastric pain 03/01/2023 Osteoporosis 01/11/2023 Palpitations 04/12/2022 Moderate episode of recurren t major depressive disorder ([facility] V24, [facility] V28) 02/28/2022 Bruising 10/17/2021 Seropositive rheumatoid arth ritis ([facility] V24, [facility] V28) 02/08/2021 Overview (03/21/2024): RF and CCP positive Primary osteoarthritis of both hands 02/01/2021 Esophageal reflux 11/12/2017 Primary osteoarthritis of both knees 02/19/2017 Overview (03/21/2024): Knee arthroscopy, 11/2020- bilateral L knee not improving 02/17 Primary osteoarthritis of both first carpometaca rpal joints 02/19/2017 SVT (supraventricular tachycardia) ([facility] V24) 03/27/2016 Overview (03/21/2024): Another episode 12/2020 Chest pain at rest 03/27/2016 Mycoplasma infection 02/22/2016 Gallstones 01/13/2016 Pulmonary nodules 10/16/2014 Pleural thickening 10/16/2014 Mycoplasma pneumonia 04/30/2014 Overview (03/21/2024): Dr. Mukesh Costello ([facility]), treated on chronic Clarithromycin Allergic rhinitis 10/27/2013 Glaucoma associated with ocular disorder 005 Overview (03/21/2024): Jassi Oden ([place], [place]); surgery 10/06/06 Viral meningitis 04/19/2005 Overview (03/21/2024): several times Disorder of bone and cartilage 04/19/2005 Bunion 04/19/2005 Overview (03/21/2024): Left bunionectomy Encounters Date Type Department Care Team Description 09/25/2024 Telephone Neurosurgery [address] [place] [address] Jasmina Ko MA Appointment (Neurology Consult appointment scheduled for 10/07/24 @ 8:30am w/ at [facility]. Pt aware) 09/10/2024 1:30 PM EDT Consult Neurosurgery [place] [facility] [place] [address] [place] [address] Jewel Knowles PA Peripheral polyneuropathy (Primary Dx); Tarlov cyst 08/11/2024 1:00 PM EDT Ancillary Procedure [facility] [address] [place] [address] SVT (supraventricular tachycardia) (CMS/HCC V24); Palpitations; Paroxysmal atrial fibrillation (CMS/HCC V24, CMS/HCC V28); COWAN (dyspnea on exertion) from Last 3 Months Immunizations Name Administration Dates Next Due Influenza trivalent, 0.5mL ( Fluad) 65yo and older 01/05/2022,01/27/2021,01/04/2019,02/09,01/16/2017 Influenza trivalent, 0.5mL, preservative free (Fluarix; FluLaval; Fluzone) ages 6mo and older (Afluria) 3 years and older 12/24/2019,01/08/2016,01/10/2015,02/01,02/08/2013,02/21/2012,02/01/2011 ,01/31/2010,01/25/2009,02/27/2008,10/2006,03/30/2006 Moderna SARS-CoV-2 COVID-19, mRNA, LNP-S, preservative free 01/05/2022,08/10/2021,03/21/2021,08/20,07/23/2020 Pneumococcal conjugate 13 va lent (Prevnar 13, PCV13) 2mo and older 02/20/2017 Pneumococcal polysaccharide 23 valent (Pneumovax 23) 2yo and older 03/13/2018 TD, Adsorbed, Preservative Free 08/22/2022 Td Tetanus diptheria (Tdvax) 7yo and older 03/11/2004 Tdap Tetanus diptheria acell ular pertussis (Boostrix; Adacel) 7yo and older 07/05/2012 Tetanus Toxoid, Unspecified 08/22/2022 Zoster recombinant (Shingrix ) 19yo and older 01/26/2020,11/27/2019 Surgical History Surgery Date Site/Laterality Comments BUNIONECTOMY PROCEDURE: [place] CORRJ HLX VLGS BNCTY SESMDC W/DOUBLE OSTEOTOMY HAND SURGERY PROCEDURE: [place] UNLISTED PROCEDURE HANDS/FINGERS; COMMENT: for cystic swelling in R wrist- tenosynovitis OTHER SURGICAL HISTORY 10/06/2006 PROCEDURE: [place] UNLISTED PROCEDURE ANTERIOR SEGMENT EYE; COMMENT: [place]; Glaucoma TUBAL LIGATION PROCEDURE: HISTORICAL TUBAL LIGATION CATARACT EXTRACTION PROCEDURE: HISTORICAL CATARACT REMOVAL; COMMENT: Nati; OD FOOT SURGERY 2001 Left PROCEDURE: HISTORICAL FOOT SURGERY; COMMENT: Bunion surgery, 2nd toe pin HYSTERECTOMY 09/2017 PROCEDURE: HISTORICAL HYSTERECTOMY; COMMENT: Al. Cystocele repair. Vag hys. KNEE SURGERY 2017 Left PROCEDURE: HISTORICAL KNEE SURGERY; COMMENT: Dr. Catalan. Arthroscopy COLONOSCOPY 11/16/2014 PROCEDURE: HISTORICAL COLONOSCOPY; COMMENT: tics; repeat in 10 yrs UPPER GASTROINTESTINAL ENDOSCOPY 11/16/2014 PROCEDURE: AZ UPPER GI ENDOSCOPY PERFORMED; COMMENT: reactive gastropathy without H. pylori COLONOSCOPY 09/2004 PROCEDURE: HISTORICAL COLONOSCOPY; COMMENT: Pranay; neg; R 10 y. melanosis coli present. COLONOSCOPY 02/07/2019 PROCEDURE: HISTORICAL COLONOSCOPY; COMMENT: Diverticulosis, otherwise normal. Random biopsies: normal. UPPER GASTROINTESTINAL ENDOSCOPY 02/07/2019 PROCEDURE: [place] UPPER GI ENDOSCOPY PERFORMED; COMMENT: Upper GI endoscopy was normal. Duodenal biopsies obtained: normal. Medical History Medical History Date Comments Other specified hypoglycemia 04/19/2005 DX: Other specified hypoglycemia Osteoarthrosis, unspecified whether generalized or localized, unspecified site 04/19/2005 DX:Osteoarthrosis, unspecifi ed whether generalized or localized, unspecified site Disorder of bone and cartila ge, unspecified 04/19/2005 DX:Disorder of bone and cart ilage, unspecified; COMMENT: T score -2.2 Unspecified viral meningitis 04/19/2005 DX: Unspecified viral meningitis; COMMENT: several times Bunion 04/19/2005 DX:Bunion; COMME NT: bunionectomy Tobacco abuse 02/27/2008 DX:Tobacco abuse Allergic rhinitis 10/27/2013 DX:Allergic rh initis Mycoplasma infection 02/22/2016 DX:Mycoplas ma infection A-fib ([facility] V24, CMS/HCC V28) DX:A-fib ([facility]); COMMENT: Dr. Alex Richter Mycoplasma pneumonia 2014 DX:Mycoplas ma pneumonia; COMMENT: Dr. Mukesh Costello ([facility]), treated on chronic Clarithromycin Insomnia DX:Insomnia; COM MENT: Prescribed Limbitrol by Dr. Velasquez of [facility] 01/2015 Esophageal reflux DX:Esophageal reflux Urinary tract infection DX:Urina ry tract infection Seropositive rheumatoid arth ritis ([facility] V24, [facility] V28) 02/08/2021 DX:Seropositive rheumatoid arthritis ([facility]); COMMENT: RF and CCP positive Presbyesophagus DX:Presbyesophag us Primary osteoarthritis of rufus th first carpometacarpal joints 02/19/2017 DX:Primary osteoarthritis of both first carpometacarpal joints Back pain DX:Back pain; CO MMENT: cervical and lumbar Family History Medical History Relation Name Comments Arthritis Brother Other: Other Brother Afib Hypertension Father Arthritis Mother hands Arthritis Sister 1 Thyroid disease Sister 1 Arthritis Sister 2 Arthritis Sister 3 Other: Other Son stenosis Breast cancer Neg Hx Colon cancer Neg Hx Ovarian cancer Neg Hx Relation Name Status Comments Brother Father Mother Sister 1 Sister 2 Sister 3 Son Social History Tobacco Use Types Packs/Day Years Used Date Smoking Tobacco: Former Cigarettes Q uit: 02/20/2014 Smokeless Tobacco: Never Tobacco Cessation:Counseling Given: Not Answered Alcohol Use Standard Drinks/Week Comments Not Currently 0 (1 standard drink = 0.6 oz pur e alcohol) Housing Instability Answer Date Recorde d Are you worried that in the next 2 months you may not have stable housing? No 04/28/2024 Food Access & Nutrition Answer Date Rec orded Do you have access to a vari ety of food including fruits and vegetables? Yes 04/28/2024 Access to Healthcare Answer Date Record ed Within the last 3 months, ho w many times did you visit the emergency department for your medical care? 0 04/28/2024 Health Literacy Answer Date Recorded How often do you need to hav e someone help you when you read instructions, pamphlets, or other written material from your doctor or pharmacy? Never 04/28/2024 Caregiver: How often do you need to have someone help you when you read instructions, pamphlets, or other written material from your doctor or pharmacy? Not on file 04/28/2024 Financial Risk Answer Date Recorded How hard is it for you to pa y for the very basics like food, housing, medical care, and air conditioning / heating? Patient declined 04/28/2024 Transportation Answer Date Recorded Has the lack of transportati on kept you from meetings, work, or from getting things needed for daily living? No Has the lack of transportati on kept you from medical appointments or from getting medications? No 04/28/2024 Social Isolation Answer Date Recorded How often do you feel lonely or isolated from th ose around you? Rarely 04/28/2024 Food Risk Answer Date Recorded Within the past 12 months we worried whether our food would run out before we got money to buy more. Never true 04/28/2024 Within the past 12 months th e food we bought just didn't last and we didn't have money to get more. Never true 04/28/2024 Dependent Care Answer Date Recorded Do you need help finding or paying for care for your loved ones. For example, child nutrition manager or elderly care for an older adult? No 04/28/2024 Education Answer Date Recorded Do you think completing more education or training, like finishing a GED, going to college, or learning a trade, would be helpful for you? No 04/28/2024 Employment and Income Answer Date Recor ded During the last four weeks, have you been actively looking for work? No 04/28/2024 Living Situation Answer Date Recorded What is your living situation? 1 Comments Unknown Sex and Gender Information Value Date Recorded Sex Assigned at Not on file Legal Sex Female 10:31 AM EST Gender Identity Not on file Sexual Orientation Not on file Obstetrics History Last Filed Vital Signs Vital Sign Reading Time Taken Comments Blood Pressure 116/69 08/11/2024 3:56 PM EDT Pulse 65 05/14/2024 3:47 PM EST Temperature 36.7 C (98 F) 05/14/2024 3:47 PM EST Respiratory Rate - - Oxygen Saturation 99% 05/14/2024 3:47 PM EST Inhaled Oxygen Concentration - - Weight 77.1 kg (170 lb) 09/10/2024 1:36 PM EDT Height 177.8 cm (5' 10 ) 09/10/2024 1:36 PM EDT Body Mass Index 24.39 09/10/2024 1:36 PM EDT Plan of Treatment Upcoming Encounters Date Type Department Care Team (Late st Contact Info) Description 12/24/2024 2:45 PM EDT Office Visit [facility] [address] [facility] [address] [place] [id number] Johny Jordan MD [address] [facility] [address] [place] [address] Health Maintenance Due Date Last Done Comments Medicare Annual Wellness Visit 04/08/2022 COVID-19 Vaccine ( season) 2023 02/16/2023, 01/05/2022, 08/10/2021, Additional history exists Falls Risk Assessment 07/11/2024 07/12/2023 Breast Cancer Screening 10/04/2024 10/05/19 23, 09/22/2021, 11/22/2018, Additional history exists Influenza Vaccine (#1) 2024 2, 01/27/2021, 12/24/2019, Additional history exists Depression Screening 01/06/2025 01/07/2024 Social Influencers of Health Screening 04/28/2025 04/28/2024 RSV Immunization Adult Patients (1 - 1-dose 75+ series) 01/01/2027 Cholesterol Screening (Lipid Panel) 08/23/2027 08/22/2022 Colorectal Cancer Screening: Colonoscopy 02/07/2029 02/07/2019 Osteoporosis Screening (Bone Density Screening) 08/21/2032 08/21/2022, 11/16/2021, 06/26/2019, Additional history exists DTaP,Tdap,and Td Vaccines (4 - Td or Tdap) 08/22/2032 08/22/2022, 07/05/2012, 03/11/2004 Hepatitis C Screening Completed 11/08/2015 Pneumococcal Vaccine: 50+ Years Completed 03/13/2018, 02/20/2017 Zoster Vaccines Completed 01/26/2020, 11/27/2019 HIB Vaccines Aged Out No longer eligi ble based on patient's age to complete this topic HPV Vaccines Aged Out No longer eligi ble based on patient's age to complete this topic Hepatitis A Vaccines Aged Out No long er eligible based on patient's age to complete this topic Hepatitis B Vaccines Aged Out No long er eligible based on patient's age to complete this topic IPV Vaccines Aged Out No longer eligi ble based on patient's age to complete this topic MMR Vaccines Aged Out No longer eligi ble based on patient's age to complete this topic Meningococcal ACWY Vaccine Aged Out N o longer eligible based on patient's age to complete this topic Meningococcal B Vaccine Aged Out No l onger eligible based on patient's age to complete this topic RSV Immunization Patients Under 20 months Aged Out No longer eligible based on patient's age to complete this topic Varicella Vaccines Aged Out No longer eligible based on patient's age to complete this topic Medical Devices Implanted Type Area Brazer Resistance Device Identifier Shelf Expiration Date Model / Serial / Lot Cement Bone Surg Simplex Radiopq Stry-Howm [id number] Implanted:Qty: 1 on 01/19/2022 by Tyrone Limon MD Left: Knee [employer] [id number] 03/29/2023 6191-1-010 / / [id number] Cement Bone Surg Simplex Radiopq Stry-Howm [id number] Implanted:Qty: 1 on 01/19/2022 by Tyrone Limon MD Left: Knee [employer] [id number] 03/29/2023 6191-1-010 / / [id number] Tibial Bearing Insert Cs 12mm Stry-How 1029-N-756-E-[id number] Implanted:Qty: 1 on 01/19/2022 by Tyrone Limon MD Left: Knee [employer] [id number] 05/23/2026 5531-G-412 -E / / [id number] Knee Tib Baseplate Sz 4 Rt-Lt Stry-Howm [id number] Implanted:Qty: 1 on 01/19/2022 by Tyrone Limon MD Left: Knee [employer] [id number] 09/21/2026 5521-B-400 / / [id number] Knee Compon Fem Cmnt Sz4 L Stry-Howm [id number] Implanted:Qty: 1 on 01/19/2022 by Tyrone Limon MD Left: Knee [employer] [id number] 08/21/2026 5510-F-401 / / [id number] Knee Pat Asymmetric X3 [id number] Stry-Howm [id number] Implanted:Qty: 1 on 01/19/2022 by Tyrone Limon MD Left: Knee [employer] [id number] 10/05/2026 5551-G-320 -E / / [id number] Knee Tib Baseplate Sz 4 Rt-Lt Stry-Howm [id number] 913 Implanted:Qty: 1 on 12/20/2022 by Tyrone Limon MD Right: Knee [employer] [id number] 07/10/2027 5521-B-400 / / [id number] Knee Tib Insrt Cr-X3 [id number] Stry-Howm [id number] Implanted:Qty: 1 on 12/20/2022 by Tyrone Limon MD Right: Knee [employer] [id number] 10/13/2025 5530-G-411 / / [id number] Knee Pat Asymmetric X3 [id number] Stry-Howm 7248-[id number]-E-[id number] Implanted:Qty: 1 on 12/20/2022 by Tyrone Limon MD Right: Knee [employer] [id number] 09/17/2027 5551-G-320 -E / / APAL Cement Bone Surg Simplex Radiopq Stry-Howm [id number] [id number] Implanted:Qty: 1 on 12/20/2022 by Tyrone Limon MD Right: Knee [employer] [id number] 04/29/2025 6191-1-010 / / [id number] Cement Bone Surg Simplex Radiopq Stry-Howm [id number] [id number] Implanted:Qty: 1 on 12/20/2022 by Tyrone Limon MD Right: Knee [employer] [id number] 04/29/2025 6191-1-010 / / [id number] Knee Compon Fem Cmnt Sz4 R Jhony [id number] Implanted:Qty: 1 on 12/20/2022 by Tyrone Limon MD Right: Knee [employer] [id number] 10/04/2027 5510-F-402 / / [id number] Procedures Procedure Name Priority Date/Time Associated Diagnosis Comments TRANSTHORACIC ECHOCARDIOGRAM (TTE) COMPLETE Routine 08/11/2024 1:40 PM EDT SVT (supraventricular tachycardia) (CMS/HCC V24) Palpitations Paroxysmal atrial fibrillation (CMS/HCC V24, CMS/HCC V28) COWAN (dyspnea on exertion) DEPRESSION SCREENING Routine 01/07/2024 FALLS RISK ASSESSMENT Routine 07/12/2023 SCREENING MAMMOGRAPHY BI 2-VIEW BREAST INC CAD Routine 10/04/2022 2:20 PM EDT Encounter for screening mammogram for malignant neoplasm of breast LIPID PANEL Routine 08/22/2022 DXA BONE DENSITY STUDY 1+ SITS AXIAL SKEL Routine 08/21/2022 11:36 AM EDT Encounter for general adult medical examination without abnormal findings COLONOSCOPY Routine 02/07/2019 HEPATITIS C SCREENING Routine 11/08/2015 from Last 3 Months or Most Recently Relevant to Health Maintenance Results * (ABNORMAL) TRANSTHORACIC ECHOCARDIOGRAM (TTE) COMPLETE (08/11/2024 1:40 PM EDT) Left Atrium Minor [place] 5.6 cm CV PACS Left Atrium Major [place] 5.5 cm CV PACS LA Area Sys (A2C) 21 cm2 CV PACS LA Area Sys (A4C) 19 cm2 CV PACS LA Volume (BP) 58 mL CV PACS LA Size 4.0 cm CV PACS RA Area 17.3 cm2 CV PACS RA 2D Volume 48 mL CV PACS AV Mean Gradient 2 mmHg CV PACS AV Mean Gradient 2 mmHg CV PACS Ao VTI 25.6 cm CV PACS AV Peak Damián 1.2 m/s CV PACS AV Peak Gradient 5 mmHg CV PACS AV Area Continuity Equation 3.3 cm2 CV PACS AV Area Peak Velocity 3.3 cm2 CV PACS Aortic Arch 2.4 cm CV PACS Ascending Aorta 3.5 cm CV PACS Aortic Sinus Valsalva 3.1 cm CV PACS IVC Proximal 2.3 cm CV PACS IVSD 1.1(A) 0.6 - 0.9 cm CV PACS LVIDD 4.5 3.8 - 5.2 cm CV PACS LVIDS 3.1 2.2 - 3.5 cm CV PACS LVOT Diameter 2.1 cm CV PACS LVOT Mean Damián 0.7 m/s CV PACS LVOT Mean Grad 2 mmHg CV PACS LVOT Mean Grad 2 mmHg CV PACS LVOT Peak VTI 24.1 cm CV PACS LVOT Peak Damián 1.1 m/s CV PACS LVOT Peak Gradient 5 mmHg CV PACS LVPWD 1.1(A) 0.6 - 0.9 cm CV PACS MV E' Tissue Velocity Lateral 8 cm/s CV PACS MV E' Tissue Velocity Septal 9 cm/s CV PACS LVOT Area 3.5 cm2 CV PACS LVOT Stroke Volume 83 mL CV PACS MV Deceleration [place] 2.2 m/s2 CV PACS E Wave Deceleration Time 275(A) 119 - 242 ms CV PACS MV PHT 81 ms CV PACS MV Peak A Damián 0.77 m/s CV PACS MV Peak E Damián 0.63 m/s CV PACS MV Mean Gradient 2 mmHg CV PACS MV VTI 31.9 cm CV PACS Mitral Valve Max Velocity 0.9 m/s CV PACS MV Peak Gradient 3 mmHg CV PACS MV Area PHT 2.7 cm2 CV PACS MV Area Continuity Equation 2.6 cm2 CV PACS PV Acceleration Time 173 ms CV PACS PV Mean Gradient 1 mmHg CV PACS PV VTI 16.3 cm CV PACS PV Peak Velocity 0.7 m/s CV PACS PV Peak Gradient 2 mmHg CV PACS RV Diastolic Basal Dimension 4.2(A) 2.5 - 4.1 cm CV PACS RV S' 9 cm/s CV PACS TAPSE 16 mm CV PACS TR Peak Velocity 2.44 m/s CV PACS TR Peak Gradient 24 mmHg CV PACS E/E' Ratio Septal 7 CV PACS E/E' Ratio Averaged 7 CV PACS Relative Wall Thickness ratio 0.49 CV PACS LVOT:AV VTI Index 0.94 CV PACS FS 31 % CV PACS LV Mass 2D 175 g CV PACS MV VTI:LVOT VTI ratio 1.3 CV PACS LVOT flow 242 mL/s CV PACS AV Velocity Ratio 0.92 CV PACS E/A Ratio 0.8 CV PACS E/E' Ratio Lateral 8 CV PACS BSA 1.97 m2 CV PACS LA Volume Index (BP) 30 mL/m2 CV PACS LVIDD Index 2.30 cm/m2 CV PACS LVIDS Index 1.58 cm/m2 CV PACS LV Mass Index 2D 89(A) 44 - 88 g/m2 CV PACS LVOT Stroke Index 42 mL/m2 CV PACS LA Dimension Index 2D 2.0 cm/m2 CV PACS RA 2D Volume Index 24 15 - 27 mL/m2 CV PACS GINNA Index (VTI) 1.66 cm2/m2 CV PACS GINNA Index (Pk Damián) 1.68 cm2/m2 CV PACS Ascending Aorta Index 1.79 cm/m2 CV PACS Right Ventricular Peak Systolic Pressure 39 mmHg CV PACS Est. RA Pressure 15 mmHg CV PACS Anatomical Region Laterality Modality Ultrasound Narrative 08/12/2024 11:34 AM EDT Left ventricle cavity size is normal. There is mild concentric hypertrophy. Systolic function is normal with an ejection fraction of 55-60%. There are no regional LV wall motion abnormalities. Indeterminate diastolic function. Right ventricle cavity is mildly enlarged. Right ventricular systolic function is low normal. Right atrium cavity is mildly dilated. Mild mitral regurgitation. Mildly elevated right ventricular systolic pressure at 39 mmHg. Compared to previous study of 04/07/2021, right ventricular size appears slightly increased. Left Ventricle Left ventricle cavity size is normal. There is mild concentric hypertrophy. Systolic function is normal with an ejection fraction of 55-60%. There are no regional LV wall motion abnormalities. Indeterminate diastolic function. Right Ventricle Right ventricle cavity is mildly dilated. Systolic function is low normal. Left Atrium Left atrium cavity size is normal. Right Atrium Right atrium cavity is mildly dilated. IVC/SVC Inferior vena cava structure is normal. RA pressures is estimated to be 8 mmHg (IVC diameter <21 mm and decreases <50% during inspiration). Mitral Valve The leaflets are mildly thickened. There is mild regurgitation with a centrally directed jet. There is no evidence of mitral valve stenosis. Tricuspid Valve Tricuspid valve structure is normal. There is mild regurgitation with a central jet. There is no evidence of tricuspid valve stenosis. The right ventricular systolic pressure is mildly elevated. The RVSP is estimated at 39 mmHg. Aortic Valve The aortic valve is trileaflet. The leaflets are mildly thickened. There is no regurgitation or stenosis. Pulmonic Valve The pulmonic valve was not well visualized. There is trace pulmonic valve regurgitation. There is no evidence of pulmonic valve stenosis. Ascending Aorta The aorta appears normal in size. Pericardium There is an fat pad. There is a pericardial effusion. Study Details Overall the study quality was adequate. Result [facility] Shanti MACDONALD CV ECHO PROCEDURES Final Result * Depression Screening (01/07/2024) Depression Screening Abstracted Result [facility] Provider [facility] Final Result * Falls Risk Assessment (07/12/2023) Falls Risk Assessment Abstracted Result [facility] Provider [facility] Final Result * SCREENING MAMMOGRAPHY BI 2-VIEW BREAST INC CAD (10/04/2022 2:20 PM EDT) Anatomical Region Laterality Modality Radiographic Elodia ging 08/08/2021 10:0 4 AM EDT Narrative 10/05/2022 9:07 AM EDT This is a summary report. The complete report is available in the patient's medical record. If you cannot access the medical record, please contact the sending organization for a detailed fax or copy. Full field digital screening tomosynthesis mammography, reviewed with CAD and compared to previous. The breasts are composed of fatty and fibroglandular tissue. No suspicious mass, architectural distortion or suspicious calcifications are identified. IMPRESSION: : No mammographic evidence of malignancy. BIRADS 1-Negative; N. 5 year breast cancer risk assessment 1.4 % Lifetime breast cancer risk assessment 4.1 % Breast cancer risk category Low (<15%) Procedure Note Scott Ahmadi MD - 06/04/2023 This is a summary report. The complete report is available in thepatient's medical record. If you cannot access the medical record, pleasecontact the sending organization for a detailed fax or copy. Full field digital screening tomosynthesis mammography, reviewed with CADand compared to previous. The breasts are composed of fatty andfibroglandular tissue. No suspicious mass, architectural distortion orsuspicious calcifications are identified. IMPRESSION: : No mammographic evidence of malignancy. BIRADS 1-Negative; N. 5 year breast cancer risk assessment 1.4 % Lifetime breast cancer risk assessment 4.1 % Breast cancer risk category Low (<15%) Hermila Kate DO IMG XR PROCEDURES Final Result * (ABNORMAL) Lipid panel (08/22/2022) LDL/HDL Ratio 4 0 - 4 Triglycerides 222(A) 0 - 150 mg/dL Cholesterol 193 0 - 200 mg/dL HDL 44 >=40 mg/dL LDL Cholesterol 105(A) 0 - 100 mg/dL Blood Venous blood specimen / Unknown [facility] Provider LAB BLOOD ORDERABLES Jyoti l Result * DXA BONE DENSITY STUDY 1+ SITS AXIAL SKEL (08/21/2022 11:36 AM EDT) Anatomical Region Laterality Modality Bone Densitometr y 08/09/2022 6:57 AM EDT Narrative 08/21/2022 8:10 PM EDT BONE DENSITY SCAN (DEXA): FINDINGS: Lumbar Spine T-score is -2.5. (SD relative to 20-29 y/o adult) Z-score is -0.4. (SD relative to age matched peers) This is considered osteoporosis by WHO criteria. Left Hip T-score is -2.8. Z-score is -1.0. This is considered osteoporosis by WHO criteria. Comparison exam(s): 11/16/2021. No statistically significant change in bone mineral density. IMPRESSION: IMPRESSION: Osteoporosis by WHO criteria. The [facility] Department of Internal Medicine recommends using National Osteoporosis Foundation (NOF) guidelines in treatment decisions related to osteoporosis. NOF guidelines suggest considering treatment for postmenopausal women and men aged 50 or older presenting with the following: History of hip or vertebral fracture. T-score = -2.5 (DXA) at the femoral neck, total hip, or spine, after appropriate evaluation to exclude secondary causes. Low bone mass (T-score between -1.0 and -2.5 at the femoral neck or spine) AND a 10-year probability of a hip fracture = 3% OR a 10-year probability of a major osteoporosis-related fracture = 20% based on the [place]-adapted WHO algorithm Please note that all treatment decisions require clinical judgment and consideration of individual patient factors, including patient preferences, co-morbidities, previous drug use, risk factors not captured in the FRAX model (e.g., frailty, falls, vitamin D deficiency, increased bone turnover, interval significant decline in bone density) and possible under- or over-estimation of fracture risk by FRAX. Optional alternative screening schedule based on panfilo Chaney., [facility] May 18, 2011 for patients with osteopenia (based on hip BMD T-score) is as follows: * advanced osteopenia (T scores -2.00 to -2.49), BMD testing every year * moderate osteopenia (T scores -1.50 to -1.99), BMD testing every 5 years mild osteopenia or normal BMD (T scores -1.50 and higher), BMD testing every 15 years Procedure Note Marleni Rowland MD - 06/04/2023 BONE DENSITY SCAN (DEXA): FINDINGS: Lumbar Spine T-score is -2.5. (SD relative to 20-29 y/o adult) Z-score is -0.4. (SD relative to age matched peers) This is considered osteoporosis by WHO criteria. Left Hip T-score is -2.8. Z-score is -1.0. This is considered osteoporosis by WHO criteria. Comparison exam(s): 11/16/2021. No statistically significant change inbone mineral density. IMPRESSION: IMPRESSION: Osteoporosis by WHO criteria. The [facility] Department of Internal Medicine recommendsusing National Osteoporosis Foundation (NOF) guidelines in treatment decisions related toosteoporosis. NOF guidelines suggest considering treatment for postmenopausal women and menaged 50 or older presenting with the following: History of hip or vertebral fracture. T-score = -2.5 (DXA) at the femoral neck, total hip, or spine, afterappropriate evaluation to exclude secondary causes. Low bone mass (T-score between -1.0 and -2.5 at the femoral neck or spine)AND a 10-year probability of a hip fracture = 3% OR a 10-year probability of a majorosteoporosis-related fracture = 20% based on the [place]-adapted WHO algorithm Please note that all treatment decisions require clinical judgment andconsideration of individual patient factors, including patient preferences, co- morbidities,previous drug use, risk factors not captured in the FRAX model (e.g., frailty, falls, vitaminD deficiency, increased bone turnover, interval significant decline in bone density) andpossible under- or over-estimation of fracture risk by FRAX. Optional alternative screening schedule based on christine Chaney al., [facility] for patients with osteopenia (based on hip BMD T-score) is as follows: * advanced osteopenia (T scores -2.00 to -2.49), BMD testing every year * moderate osteopenia (T scores -1.50 to -1.99), BMD testing every 5years mild osteopenia or normal BMD (T scores -1.50 and higher), BMD testingevery 15 years Krista Galvan MD IM DXA PROCEDURES Final Resul t * Colonoscopy (02/07/2019) [facility] Colonoscopy No interpretation , abstracted Anatomical Region Laterality Modality Other Historical Provider HEALTH MAINTENANCE Final Result * Hepatitis C Screening (11/08/2015) [facility] Hepatitis C Screening Abstracted [facility] Jason ACOSTA HEALTH MAINTENANCE Final Result from Last 3 Months or Most Recently Relevant to Health Maintenance Insurance MEDICARE [facility] Care Teams Safety Engineer Pressure Vessels Relationship Specialty Start Date End Date Liss Phelan NP [address] [place] [address] [address] [place] [id number] PCP - General Family Medicine 05/13/24
--- OUTSIDE RECORDS SUMMARY | 2024-11-04 09:42 | XMS_ITS | Clinical Summary ---
Author Organization Formerly [facility] Address [address] [place] [address] Care Team Providers Care Railroad Car Loader Name Role Phone Krista Galvan MD Primary Care Provider [phone] Social History Tobacco Use Types Packs/Day Years Used Date Smoking Tobacco: Never Assessed Comments Unknown Sex and Gender Information Value Date Recorded Sex Assigned at Not on file Legal Sex Female 12:22 PM EDT Gender Identity Not on file Sexual Orientation Not on file Plan of Treatment Health Maintenance Due Date Last Done Comments Hepatitis C Virus Screening 1950 DTaP/Tdap/Td Vaccines (1 - Tdap) 01/01/1971 Mammogram 1992 Colonoscopy 01/01/1997 Pneumococcal Vaccines 50+ (1 of 1 - PCV) 01/01/2002 Zoster (Shingles) Vaccine (1 of 2) 01/01/2002 DXA Bone Density (Females,Ages 65 and older) 01/01/2017 COVID-19 Vaccine (2023- season) 2023 01/05/2022, 08/10/2021, 03/21/2021, Additional history exists Influenza Vaccine 11/28/2024 12/24/2019, , 02/01/2014, Additional history exists RSV Vaccine 60 years and older and Patients (1 - 1-dose 75+ series) 01/01/2027 Hepatitis B Vaccines Aged Out No long er eligible based on patient's age to complete this topic Insurance MEDICARE PART A & B [place] [id number] Care Teams Railroad Car Loader Relationship Specialty Start Date End Date Krista Galvan MD [address] [place] [address] [address] [place] [address] PCP - General 04/09/23
== END 2024-11-04 10:10 | disposition home or self-care (01) ==
LOC: HO.HSM 09:17
PROVIDERS: PCP Internal Medicine; Visit Provider Psychiatry & Neurology Neurology
DX: G62.9 Polyneuropathy, unspecified (principal); M06.9 Rheumatoid arthritis, unspecified; M17.0 Bilateral primary osteoarthritis of knee
CPT/HCPCS: 99204

== ENCOUNTER → 2024-11-04 09:17 | Outpatient (BNVA) | payer MEDICARE, SELFPAY | PROVIDERS: PCP Internal Medicine; Visit Provider Psychiatry & Neurology Neurology | DX: M17.0 Bilateral primary osteoarthritis of knee (principal); G62.9 Polyneuropathy, unspecified; M60.9 Myositis, unspecified | CPT/HCPCS: 99202 ==

== ENCOUNTER 2025-02-10 09:27 | Outpatient (AMB) | payer MEDICARE, SELFPAY ==
--- NOTE | 2025-02-10 09:34 | MHC.OFFVIS ---
Intake Visit Reasons: 3m Peripheral neuropathy vs pain from OA s/p TKR a Allergies No Known Allergies Allergy (Verified 11/03/24 15:48) Medication List - Last Reconciled 02/10/25 by Prema Velasquez MD desmopressin 0.2 mg PO BEDTIME famotidine 40 mg PO BEDTIME flecainide mg PO Q12H folic acid 0.4 mg PO DAILY lorazepam mg PO DAILY meloxicam 15 mg PO DAILY 30 days methotrexate sodium 15 mg PO QWEEK metoprolol succinate ER 50 mg PO DAILY quetiapine 50 mg PO BEDTIME HPI Comments Details: This is 74-year-old generally healthy woman with a history of anxiety who comes in pain in both knees that has been painful and feet hurt. Also has pain on touch. 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 She is in no pain generally unless she touches or squeezes it with her hand from mid thigh down. 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 In the past she had insomnia since August 2014 which has resolved. She has some elements of depression. She has tried Ambien, Ambien CR, Lunesta and Sonata without relief. For 8 years she had been on Benadryl 50 mg at bedtime for sleep. started Gabapentin and stopped after a week. Also tried Duloxetine which made her nauseated. Currently using Amitriptyline HS. Has not helped the pain. Also on Meloxicam and Tylenol. Pain gets worse if she is on her feet or walks around the block. [facility] Medical History (Updated 11/04/24 @ 10:09 by Prema Velasquez MD) Chidi syndrome APS (antiphospholipid syndrome) Other specified disorders involving the immune mechanism, not elsewhere classified Chronic fatigue, unspecified Insomnia Surgical History (Updated 11/04/24 @ 10:09 by Prema Velasquez MD) History of eye surgery Social History (Updated 11/02/24 @ 23:34 by Cassie Ko MA) Patient Tobacco Use Status: Never used Tobacco Review of Systems Const Details: Sleep Difficulty getting to sleep?denies.?Difficulty maintaining sleep?denies?.?Urge to move legs?denies.?Teeth grinding?denies.?Shouting or Kicking during sleep?denies.?Abnormal behavior during sleep?denies.?Excessive sleep?denies.?Snoring?denies.?Daytime sleepiness?denies. ? General/Constitutional Change in appetite?denies.?Chills?denies.?Fatigue?denies.?Fever?denies.?Weight gain?denies.?Weight loss?denies. ? Ophthalmologic Blurred vision?denies.?Diminished visual acuity?denies. ? ENT Stuffiness?denies.?Decreased hearing?denies.?Dry mouth?denies.?Ear pain?denies.?Nosebleed?denies.?Ringing in the ears?denies.?Sinus pain?denies.?Sore throat?denies.?Swollen glands?denies. ? Endocrine Cold intolerance?denies.?Excessive thirst?denies.?Frequent urination?denies.?Heat intolerance?denies. ? Respiratory Shortness of breath?denies.?Chest pain?denies.?Cough?denies. ? Breast Breast lump?denies.?Nipple discharge?denies. ? Cardiovascular Chest pain at rest?denies.?Chest pain with exertion?denies.?Claudication?denies.?Dizziness?denies.?Fluid accumulation in the legs?denies.?Irregular heartbeat?denies.?Palpitations?denies. ? Gastrointestinal Abdominal pain?denies.?Constipation?denies.?Diarrhea?denies.?Difficulty swallowing?denies.?Heartburn?denies.?Nausea?denies.?Rectal bleeding?denies. ? Hematology Easy bruising?denies.?Prolonged bleeding?denies. ? Genitourinary Frequent urination?denies.?Urgency?denies.?Incontinence?denies.?Erectile Dysfunction?denies. ? Musculoskeletal Neck pain?denies.?Back pain?denies.?Muscle aches?denies.?Painful joints?yes.?Sciatica?denies.?Weakness?denies. ? Podiatric Difficulty walking?denies.?Foot numbness?denies. ? Neurologic Difficulty swallowing?denies.?Balance difficulty?denies.?Coordination?normal.?Difficulty speaking?denies.?Dizziness?denies.?Fainting?denies.?Gait abnormality?denies.?Headache?denies.?Loss of strength?denies.?Loss of use of extremity?denies.?Low back pain?denies.?Memory loss?denies.?Seizures?denies.?Tics?denies.?Tingling/Numbness?denies.?Transient loss of vision?denies.?Tremor?denies. ? Psychiatric Anxiety?denies.?Auditory/visual hallucinations?denies.?Delusions?denies.?Depressed mood?denies.?Stressors?denies.?Substance abuse?denies.?Suicidal thoughts?denies. Physical Exam Neuro Other: Abnormal neurological findings:?blunting of pin prick in left foot and impaired vibration. Collapsed arches on left. Decreased left ankle reflex. Mental Status:alert and oriented X 3,?Normal attention, orientation, memory and affect. Cranial Nerves:Pupils are equal, round and reactive to light. Fundoscopy shows normal disc bilaterally. External occular muscles are intact. Visual dinero are full, no ptosis. Face is symmetrical, no facial weakness or droop. Facial sensations are normal. Tongue protrudes in midline. Palate elevates symmetrically. Shoulder shrugging is normal.. Motor Examination:Normal muscle tone, bulk and strength,?No atrophy or fasciculations,?No drift of the extended upper extremities,?Deep tendon reflexes are 2+ diminishe dleft ankle reflex?,?Plantars are flexor?. Motor Strength: ? Proximal Muscles (out of 5): ?5 ? Distal Muscles (out of 5): ?5 ? Neck Flexors (out of 5): ?5 ? Neck Extensors (out of 5): ?5 ? Deltoid (out of 5): ?5 ? Biceps (out of 5): ?5 ? Triceps (out of 5): ?5 ? Serratus Anterior (out of 5): ?5 ? Wrist Extensors (out of 5): ?5 ? APB (out of 5): ?5 ? Finger Spread (out of 5): ?5 ? Ileopsoas (out of 5): ?5 ? Quadriceps (out of 5): ?5 ? Hamstrings (out of 5): ?5 ? Tibialis Anterior (out of 5): ?5 ? Peronei (out of 5): ?5 ? EDB (out of 5): ?5 ? Gastrocnemius (out of 5): ?5 Straight Leg Raisin degrees. Sensory Exam: As above, otherwise Normal light touch, temperature, pinprick, vibration and joint-position sensations?,?Rhomberg sign is absent. Coordination:no ataxia,?no titubation,?jrrems-ej-rbyz, hpew-oaly-pznt test and rapid alternating movements were normal. Gait Exam:Within normal limits. Cerebellar Signs:Eenqdl-[id number]-exbg and mlfw-ww-lbpk is normal,?no dysdiadochokinesia?. Extrapyramidal System:No tremor, rigidity with normal facial expressions,?No bradykinesia, no bradyphrenia. Normal arm swing and posture. No propulsion or retropulsion. Speech:Normal,?no dysphasia or dysarthria.. Mini Mental Status Exam: Level of Consciousness:Alert. Orientation:Knows correct year, month, date, day and season,?Knows correct city, county and state. Knows correct location and floor. Registration:Able to register 3 objects. Attention:Serial 7's performed accurately. Recall:Able to recall 3 out of 3 objects. Language:Normal spontaneous speech, fluency, repetition,naming, comprehension, reading and writing. Total Score 30/30. General Examination: GENERAL APPEARANCE:normal,?in no acute distress. HEAD:normocephalic,?atraumatic. EYES:sclera non-icteric,?conjunctiva clear. EARS:auditory canal clear,?tympanic membrane intact, clear. NOSE:no lesions. ORAL CAVITY:gums normal,?mucosa moist,?no lesions. THROAT:clear. NECK/THYROID:no cervical lymphadenopathy,?thyroid normal,?neck supple, full range of motion,?no carotid bruit. SKIN:no rashes,?no significant birthmarks. HEART:S1, S2 normal,?no murmurs. LUNGS:clear anteriorly and posteriorly. CHEST:no gross rib deformity,?clear to auscultation. BACK:normal exam of spine. EXTREMITIES:no edema. PERIPHERAL PULSES:normal. PSYCH:alert, oriented,?cognitive function intact,?cooperative with exam. Assessments Assessment & Plan Assessment & Plan (1) Peripheral neuropathy: Code(s): G62.9 - Polyneuropathy, unspecified Category: Medical (2) Rheumatoid arthritis: Code(s): M06.9 - Rheumatoid arthritis, unspecified Category: Medical (3) Osteoarthritis of knees, bilateral: Code(s): M17.0 - Bilateral primary osteoarthritis of knee Category: Medical Plan Stop Amitriptyline. Restart gabapentin 300 mg 1 at bedtime only. Continue Meloxicam 15mg for the knee pain Medications: New gabapentin 300 mg PO BEDTIME 30 caps 0RF Coding Level of Care Code Est Pt Level 4 (37553) Diagnoses Peripheral neuropathy G62.9 Rheumatoid arthritis M06.9 Osteoarthritis of knees, bilateral M17.0
--- OUTSIDE RECORDS SUMMARY | 2025-02-10 10:25 | XMS_ITS | Clinical Summary ---
Author Organization [facility] Address [address] [place] [address] Care Team Providers Care Tape Coater Name Role Phone Krista Galvan MD Primary Care Provider [phone] Social History Tobacco Use Types Packs/Day Years Used Date Smoking Tobacco: Never Assessed Comments Unknown Sex and Gender Information Value Date Recorded Sex Assigned at Not on file Legal Sex Female 12:22 PM EDT Gender Identity Not on file Sexual Orientation Not on file Plan of Treatment Health Maintenance Due Date Last Done Comments Advance Care Planning 1950 Hepatitis C Virus Screening 1950 DTaP/Tdap/Td Vaccines (1 - Tdap) 01/01/1971 Mammogram 1992 Colonoscopy 01/01/1997 Pneumococcal Vaccines 50+ (1 of 1 - PCV) 01/01/2002 Zoster (Shingles) Vaccine (1 of 2) 01/01/2002 DXA Bone Density (Females,Ages 65 and older) 01/01/2017 Influenza Vaccine 11/28/2024 12/24/2019, , 02/01/2014, Additional history exists COVID-19 Vaccine ( season) 2024 01/05/2022, 08/10/2021, 03/21/2021, Additional history exists RSV Vaccine 60 years and older and Patients (1 - 1-dose 75+ series) 01/01/2027 Hepatitis B Vaccines Aged Out No long er eligible based on patient's age to complete this topic Insurance MEDICARE PART A & [place] [id number] Care Teams Tape Coater Relationship Specialty Start Date End Date Krista Galvan MD [address] [place] [phone] PCP - General 04/09/23
--- OUTSIDE RECORDS SUMMARY | 2025-02-10 10:25 | XMS_ITS | Clinical Summary ---
Author Organization [facility] Address [address] [place] [address] Phone Care Team Providers Care Waste/Materials Exchange Specialist Name Role Phone Liss Phelan NP Primary Care Provider [phone] Allergies Active Allergy Reactions Criticality Noted Date Comments Amoxicillin-Pot Clavulanate 04/14/20 19 Diarrhea, nausea, vomitting Doxycycline Hives Medium 09/12/2019 Hives Medications LORazepam (ATIVAN) 0.5 mg tablet TAKE 1 TABLET BY MOUTH DAILY NEEDED FOR ANXIETY 28 tablet 03/04/20 24 Active alendronate (FOSAMAX) 70 mg tablet 01/28/20 24 Active gabapentin (NEURONTIN) 100 mg [...] 1 TABLET BY MOUTH DAILY AT NIGHT 90 tablet 1 02/11/20 25 Active famotidine (PEPCID) 40 mg tablet TAKE 1 TABLET BY MOUTH DAILY AT NIGHT 30 tablet 1 12/16/19 25 025 Discontinued Active Problems Problem Noted Date Diagnosed Date COWAN (dyspnea on exertion) 05/13/2024 Presbyesophagus 03/21/2024 Peripheral polyneuropathy 01/07/2024 Assessment & Plan (09/10/2024 3:33 PM EDT): Ms. Burton describes bilateral leg pain to the touch. She does not have pain with walking except at the knees. She is neurologically intact. An MRI of the lumbar spine from [facility] dated July 11, 2024 shows mild [...] would refer her to Dr. Marina in [place]. I am happy to do so. She is welcome to follow-up with us on an as-needed basis. Insomnia 06/22/2023 Paroxysmal atrial fibrillation (CMS/HCC V24, CMS /HCC V28) 05/01/2023 Assessment & Plan (12/24/2024 3:06 PM EDT): Orders: ECG 12 lead Lightheaded 05/01/2023 Epigastric pain 03/01/2023 Osteoporosis 01/11/2023 Palpitations 04/12/2022 Moderate episode of recurren t major depressive disorder ([facility] V24, [facility] V28) 02/28/2022 Bruising 10/17/2021 Seropositive rheumatoid arth ritis ([facility] V24, [facility] V28) 02/08/2021 Overview (03/21/2024): RF and CCP positive Primary osteoarthritis of both hands 02/01/2021 Esophageal reflux 11/12/2017 Primary osteoarthritis of both knees 02/19/2017 Overview (03/21/2024): Knee arthroscopy, 11/2020- bilateral L knee not improving 02/17 Primary osteoarthritis of both first carpometaca rpal joints 02/19/2017 SVT (supraventricular tachycardia) ([facility] V24) 03/27/2016 Overview (03/21/2024): Another episode 12/2020 Chest pain at rest 03/27/2016 Mycoplasma infection 02/22/2016 Gallstones 01/13/2016 Pulmonary nodules 10/16/2014 Pleural thickening 10/16/2014 Mycoplasma pneumonia 04/30/2014 Overview (03/21/2024): Dr. Mukesh Costello ([facility]), treated on chronic Clarithromycin Allergic rhinitis 10/27/2013 Glaucoma associated with ocular disorder 005 Overview (03/21/2024): Jassi Oden ([place], [place]); surgery 10/06/06 Viral meningitis 04/19/2005 Overview (03/21/2024): several times Disorder of bone and cartilage 04/19/2005 Bunion 04/19/2005 Overview (03/21/2024): Left bunionectomy Encounters Date Type Department Care Team Description 12/24/2024 2:45 PM EDT Office Visit [facility] [address] [place] [address] Johny Carrasco MD Paroxysmal atrial fibrillation (CMS/HCC V24, CMS/[facility] V28) (Primary Dx); PSVT (paroxysmal supraventricular tachycardia) ([facility] V24) from Last 3 Months Immunizations Immunization Administration Dates Next Due Influenza trivalent, 0.5mL [...] History Surgery Date Site/Laterality Comments BUNIONECTOMY PROCEDURE: MI FERNANDA CARL VLGS BNCTY SESMDC W/DOUBLE OSTEOTOMY HAND SURGERY PROCEDURE: MI UNLISTED PROCEDURE HANDS/FINGERS; COMMENT: for cystic swelling in R wrist- tenosynovitis OTHER SURGICAL HISTORY 10/06/2006 PROCEDURE: MI UNLISTED PROCEDURE ANTERIOR SEGMENT EYE; COMMENT: [place]; Glaucoma TUBAL LIGATION PROCEDURE: HISTORICAL TUBAL LIGATION CATARACT EXTRACTION PROCEDURE: HISTORICAL CATARACT REMOVAL; COMMENT: [place]; OD FOOT SURGERY 2001 Left PROCEDURE: HISTORICAL FOOT SURGERY; COMMENT: Bunion surgery, 2nd toe pin HYSTERECTOMY 09/2017 PROCEDURE: HISTORICAL HYSTERECTOMY; COMMENT: Al. Cystocele repair. Vag hys. KNEE SURGERY 2018 Left PROCEDURE: HISTORICAL KNEE SURGERY; COMMENT: Dr. Catalan. Arthroscopy COLONOSCOPY 11/16/2014 PROCEDURE: HISTORICAL COLONOSCOPY; COMMENT: tics; repeat in 10 yrs UPPER GASTROINTESTINAL ENDOSCOPY 11/16/2014 PROCEDURE: MI UPPER GI ENDOSCOPY PERFORMED; COMMENT: reactive gastropathy without H. pylori COLONOSCOPY 09/2004 PROCEDURE: HISTORICAL COLONOSCOPY; COMMENT: Pranay; neg; R 10 y. melanosis coli present. COLONOSCOPY 02/07/2019 PROCEDURE: HISTORICAL COLONOSCOPY; COMMENT: Diverticulosis, otherwise normal. Random biopsies: normal. UPPER GASTROINTESTINAL ENDOSCOPY 02/07/2019 PROCEDURE: MI UPPER GI ENDOSCOPY PERFORMED; COMMENT: Upper GI [...] Mycoplasma infection 02/22/2016 DX:Mycoplas ma infection A-fib ([facility] V24, [facility] V28) DX:A-fib ([facility]); COMMENT: Dr. Alex Richter Mycoplasma pneumonia 2014 DX:Mycoplas ma pneumonia; COMMENT: Dr. Mukesh Costello ([facility]), treated on chronic Clarithromycin Insomnia DX:Insomnia; COM MENT: Prescribed Limbitrol by Dr. Velasquez of [facility] 01/2015 Esophageal reflux DX:Esophageal reflux Urinary tract infection DX:Urina ry tract infection Seropositive rheumatoid arth ritis ([facility] V24, CMS/HCC V28) 02/08/2021 DX:Seropositive rheumatoid arthritis (HCC); COMMENT: RF and CCP positive Presbyesophagus DX:Presbyesophag [...] Used Date Smoking Tobacco: Former Cigarettes 1 43.8 1 971 - 02/20/2014 Smokeless Tobacco: Never Tobacco Cessation:Counseling Given: [...] for your loved ones. For example, child support case officer or elderly care for an older adult? [...] Date Recorded What is your living situation? Unrecognized valu e 04/28/2024 Comments Unknown Sex and Gender Information Value Date Recorded Sex Assigned at Not on file Legal Sex Female 10:31 AM EST Gender Identity Not on file Sexual Orientation Not on file Obstetrics History Last Filed Vital Signs Vital Sign Reading Time Taken Comments Blood Pressure 120/70 12/24/2024 2:35 PM EDT Pulse 64 12/24/2024 2:35 PM EDT Temperature 36.7 C (98 F) 05/14/2024 3:47 PM EST Respiratory Rate - - Oxygen Saturation 99% 12/24/2024 2:35 PM EDT Inhaled Oxygen Concentration - - Weight 79.8 kg (176 lb) 12/24/2024 2:35 PM EDT Height 177.8 cm (5' 10 ) 12/24/2024 2:35 PM EDT Body Mass Index 25.25 12/24/2024 2:35 PM EDT Plan of Treatment Upcoming Encounters Date Type Department Care Team (Late st Contact Info) Description 02/11/2025 1:45 PM EDT Appointment [facility] CT Scan [address] [place] [address] Health Maintenance Due Date Last Done Comments RSV Immunization Adult Patients (1 - Risk 50-74 years 1-dose series) 01/01/2002 Medicare Annual Wellness Visit 04/08/2022 Depression Screening 04/30/2024 01/07/2024 Falls Risk Assessment 07/11/2024 07/12/2023 Breast Cancer Screening 10/04/2024 10/05/19 23, 09/22/2021, 11/22/2018, Additional history exists COVID-19 Vaccine ( season) 2024 02/16/2023, 01/05/2022, 08/10/2021, Additional history exists Influenza Vaccine (#1) 2024 , 01/27/2021, 12/24/2019, Additional history exists Lung Cancer Screening (Low Dose CT) 02/11/2025 02/12/2024, 02/11/2024, 01/30/2023, Additional history exists Social Influencers of Health Screening 04/28/2025 04/28/2024 Cholesterol Screening (Lipid Panel) 08/23/2027 08/22/2022 Colorectal [...] this topic Medical Devices Implanted Type Area Harness Cutter Device Identifier Shelf Expiration Date Model / Serial / Lot Cement Bone Surg Simplex Radiopq Stry-Howm [id number] [id number] Implanted:Qty: 1 on 01/19/2022 by Tyrone Limon MD Left: Knee [employer] [id number] 03/29/2023 6191-1-010 / / [id number] Cement Bone Surg Simplex Radiopq Stry-Howm [id number] [id number] Implanted:Qty: 1 on 01/19/2022 by Tyrone Limon MD Left: Knee [employer] [id number] 03/29/2023 6191-1-010 / / [id number] Tibial Bearing Insert Cs 12mm Stry-How 7306-X-349-E-7 [id number] Implanted:Qty: 1 on 01/19/2022 by Tyrone Limon MD Left: Knee [employer] [id number] 05/23/2026 5531-G-412 -E / / [id number] Knee Tib Baseplate Sz 4 Rt-Lt Stry-How 7942-[id number]-[id number] 913 Implanted:Qty: 1 on 01/19/2022 by Tyrone Limon MD Left: Knee [employer] [id number] 09/21/2026 5521-B-400 / / [id number] Knee Compon Fem Cmnt Sz4 L Stry-How 5543-X-[id number] 181 Implanted:Qty: 1 on 01/19/2022 by Tyrone Limon MD Left: Knee [employer] [id number] 08/21/2026 5510-F-401 / / [id number] Knee Pat Asymmetric X3 W45s01ai Stry-How 0654-X-326-E-2 [id number] Implanted:Qty: 1 on 01/19/2022 by Tyrone Limon MD Left: Knee [employer] [id number] 10/05/2026 5551-G-320 -E / / [id number] Knee Tib Baseplate Sz 4 Rt-Lt Stry-Howm 9717-I-323-545 913 Implanted:Qty: 1 on 12/20/2022 by Tyrone Limon MD Right: Knee [employer] [id number] 07/10/2027 5521-B-400 / / [id number] Knee Tib Insrt Cr-X3 1k7m29ue Stry-Howm 2093-M-[id number] 525 Implanted:Qty: 1 on 12/20/2022 by Tyrone Limon MD Right: Knee [employer] [id number] 10/13/2025 5530-G-411 / / [id number] Knee Pat Asymmetric X3 Y35v42hm Stry-Howm 8286-C-556-E-2 55113 Implanted:Qty: 1 on 12/20/2022 by Tyrone Limon MD Right: Knee [employer] [id number] 09/17/2027 5551-G-320 -E / / APAL Cement Bone Surg Simplex Radiopq Stry-Howm [id number] 092 Implanted:Qty: 1 on 12/20/2022 by Tyrone Limon MD Right: Knee [employer] [id number] 04/29/2025 6191-1-010 / / [id number] Cement Bone Surg Simplex Radiopq Stry-Howm [id number] 092 Implanted:Qty: 1 on 12/20/2022 by Tyrone Limon MD Right: Knee [employer] [id number] 04/29/2025 6191-1-010 / / [id number] Knee Compon Fem Cmnt Sz4 R Stry-Howm 2076-I-[id number] 182 Implanted:Qty: 1 on 12/20/2022 by Tyrone Limon MD Right: Knee [employer] [id number] 10/04/2027 5510-F-402 / / [id number] Procedures Procedure Name Priority Date/Time Associated Diagnosis Comments ECG 12-LEAD Routine 12/24/2024 2:43 PM EDT Paroxysmal atrial fibrillation (CMS/HCC V24, CMS/HCC V28) CT LUNG SCREENING LOW DOSE Routine 02/12/2024 11:06 AM EDT Personal history of nicotine dependence DEPRESSION SCREENING Routine 01/07/2024 FALLS RISK ASSESSMENT [...] Recently Relevant to Health Maintenance Results * ECG 12 lead (12/24/2024 2:43 PM EDT) Ventricular Rate ECG 64 BPM GEMUSE Atrial Rate 64 BPM GEMUSE P-R Interval 234 ms GEMUSE QRS Duration 100 ms GEMUSE Q-T Interval 418 ms GEMUSE QTc 431 ms GEMUSE P Wave [place] 65 degrees GEMUSE R [place] -16 degrees GEMUSE T [place] 43 degrees GEMUSE ECG Interpretation Sinus rhythm with 1st degree A-V block Incomplete right bundle branch block ST and T wave abnormality, consider anterior ischemia When compared with ECG of 13-MAY-2024 13:42, No significant change was found Confirmed by EVERT CARRASCO ([id number]) on 12/24/2024 3:11:25 PM GEMUSE 12/24/2024 2:43 PM EDT 12/24/2024 3:11 PM EDT us Johny Carrasco MD ECG ORDERABLES Final Resu lt GEMUSE * CT LUNG SCREENING LOW DOSE (02/12/2024 11:06 AM EDT) Anatomical Region Laterality Modality Computed Tomogra phy 02/11/2024 11:1 8 AM EDT Narrative 02/12/2024 11:06 AM EDT [facility] Diagnostic Imaging Department [address] [place] [address] Patient: CRYSTAL BURTON /Age/Sex: 1950 - 74 - F Unit#: [id number] Location/Status: [facility] Mnemonic/Ordering Site: [facility] Ordering Physician: SOL BENEDICT MD CT Lung Screening Low Dose - 02/11/24 - 1125 Report Status:Signed EXAMINATION: CT CHEST WITHOUT CONTRAST LUNG CANCER SCREENING, LOW DOSE CLINICAL INFORMATION: Lung cancer screening. Former smoker. 1 pack per day for 43 years. Quit smoking 11 years ago. Exposure to secondhand smoke. COMPARISON: Portions of previous 01/29/2023 TECHNIQUE: Multidetector CT. Examination of the chest. Examination of the chest without IV contrast. Reformatting in the coronal and sagittal planes. Device: [employer] [place] DLP: 177 mGy-cm CTDI: 4.89 Dose optimization was performed including the use of low-dose iterative reconstruction technique with automatic exposure control based on patient size. Type of contrast: None Volume of IV contrast: None Volume of contrast discarded: 0 mL FINDINGS: LUNG: The central airways are widely patent. No focal pneumonia, mass or suspicious nodule There is no generalized thickening of the intralobular septa. LUNG NODULES: There are no suspicious nodules or masses. There is irregularity in the apex bilaterally which is unchanged and consistent with postinflammatory scarring. MEDIASTINUM: There are no enlarged mediastinal or hilar lymph nodes. No suspicious abnormalities of the esophagus CARDIAC: The heart is enlarged. There is fat attenuation near the apex of the left ventricle. This can be seen following myocardial infarct. No aneurysm demonstrated. There are mild coronary calcifications. VASCULAR: There is no thoracic aortic aneurysm. The main pulmonary artery is normal caliber PLEURAL: There is no pleural fluid or pneumothorax. There is biapical thickening consistent with scarring. AXILLA/CHEST WALL: There are no enlarged axillary lymph nodes. No chest wall mass demonstrated MUSCULOSKELETAL: No suspicious focal bony lesion VISUALIZED UPPER ABDOMEN: No suspicious abnormality on limited assessment of the visualized upper abdomen. IMPRESSION: No suspicious pulmonary mass or nodule. No suspicious interval change LUNG RADS: Lung-RADS 1: NEGATIVE S Modifier (Significant or Potentially Significant Findings): None present No suspicious nonpulmonary findings. RECOMMENDATIONS: 12 [address] low dose [address] Dictating Physician: Gloria LAO BRET MD Electronically Signed by: Gloria LAO BRET MD Dic Date/Time: 02/12/24 1052 Sign date/Time: 02/12/24 1106 Procedure Note Tommie Lao MD - 02/26/2024 [facility] Diagnostic Imaging Department [address] [place], [place] [id number] Patient: CRYSTAL BURTON./Age/Sex: 1950 - 74 - F Unit#: [id number] Location/Status: SPDICATLS/REG CLI Mnemonic/Ordering Site: [facility] Ordering Physician: SOL BENEDICT MD CT Lung Screening Low Dose - 02/11/24 - 1125 Report Status:Signed EXAMINATION: CT CHEST WITHOUT CONTRAST LUNG CANCER SCREENING, LOW DOSE CLINICAL INFORMATION: Lung cancer screening. Former smoker. 1 pack per day for 43 years. Quit smoking 11 years ago. Exposure to secondhand smoke. COMPARISON: Portions of previous 01/29/2023 TECHNIQUE: Multidetector CT. Examination of the chest. Examination of the chest without IV contrast. Reformatting in the coronal and sagittal planes. Device: [employer] [place] DLP: 177 mGy-cm CTDI: 4.89 Dose optimization was performed including the use of low-dose iterative reconstruction technique with automatic exposure control based on patientsize. Type of contrast: None Volume of IV contrast: None Volume of contrast discarded: 0 mL FINDINGS: LUNG: The central airways are widely patent. No focal pneumonia, mass or suspicious nodule There is no generalized thickening of the intralobularsepta. LUNG NODULES: There are no suspicious nodules or masses. There is irregularity in the apex bilaterally which is unchanged andconsistent with postinflammatory scarring. MEDIASTINUM: There are no enlarged mediastinal or hilar lymph nodes. No suspicious abnormalities of the esophagus CARDIAC: The heart is enlarged. There is fat attenuation near the apex ofthe left ventricle. This can be seen following myocardial infarct. Noaneurysm demonstrated. There are mild coronary calcifications. VASCULAR: There is no thoracic aortic aneurysm. The main pulmonary arteryis normal caliber PLEURAL: There is no pleural fluid or pneumothorax. There is biapical thickening consistent with scarring. AXILLA/CHEST WALL: There are no enlarged axillary lymph nodes. No chestwall mass demonstrated MUSCULOSKELETAL: No suspicious focal bony lesion VISUALIZED UPPER ABDOMEN: No suspicious abnormality on limited assessmentof the visualized upper abdomen. IMPRESSION: No suspicious pulmonary mass or nodule. No suspicious interval change LUNG RADS: Lung-RADS 1: NEGATIVE S Modifier (Significant or Potentially Significant Findings): Nonepresent No suspicious nonpulmonary findings. RECOMMENDATIONS: 12 [address] screening low dose [address] Dictating Physician: Gloria LAO BRET MD Electronically Signed by: Gloria LAO BRET MD Dic Date/Time: 02/12/24 1052 Sign date/Time: 02/12/24 1106 Result [facility] Sol Benedict MD IMG CT PROCEDURES Final Result * Depression Screening (01/07/2024) Depression Screening Abstracted Historical Provider HEALTH MAINTENANCE Final Result * Falls Risk Assessment (07/12/2023) Falls Risk Assessment Abstracted Historical Provider HEALTH MAINTENANCE Final Result * SCREENING MAMMOGRAPHY BI 2-VIEW [...] mg/dL Blood Venous blood specimen / Unknown [facility] Provider LAB BLOOD ORDERABLES Jyoti l [...] IMPRESSION: IMPRESSION: Osteoporosis by WHO criteria. [facility] Department of Internal Medicine recommends using [...] alternative screening schedule based on panfilo Chaney., [facility] May 18, 2011 for patients with osteopenia [...] IMPRESSION: IMPRESSION: Osteoporosis by WHO criteria. [facility] Department of Internal Medicine recommendsusing National [...] screening schedule based on christine Chaney al., NEJJanuary 2011 for patients with osteopenia (based on hip BMD T-score) is as follows: * advanced osteopenia (T scores -2.00 to -2.49), BMD testing every year * moderate osteopenia (T scores -1.50 to -1.99), BMD testing every 5years mild osteopenia or normal BMD (T scores -1.50 and higher), BMD testingevery 15 years Krista Galvan MD IM DXA PROCEDURES Final Resul t * Colonoscopy (02/07/2019) [facility] Colonoscopy No interpretation , abstracted Anatomical Region Laterality Modality Other Historical Provider HEALTH MAINTENANCE Final Result * Hepatitis C Screening (11/08/2015) [facility] Hepatitis C Screening Abstracted Historical Provider HEALTH MAINTENANCE Final Result from Last 3 Months or Most Recently Relevant to Health Maintenance Insurance MEDICARE [facility] Care Teams Waste/Materials Exchange Specialist Relationship Specialty Start Date End Date Liss Phelan NP [address] [place] [address] [address] [place] [id number] PCP - General Family Medicine 05/13/24
--- OUTSIDE RECORDS SUMMARY | 2025-02-10 10:25 | XMS_ITS ---
Author Name [facility] Organization Unknown Results Test Name/Text Value Interpretation Date Range Source BUN SerPl-mCnc 22.0 mg/dL Normal 03/28/2023 7 - [address] Albumin SerPl-mCnc 4.0 g/dL Normal 03/28/2023 3.6 - 5.1 [facility] eGFRcr SerPlBld CKD-EPI 2020 93.0 mL/min/1.73m2 Normal 03/28/2023 - [facility] Prot SerPl-mCnc 6.3 g/dL Normal 03/28/2023 6.1 - 8.[address] CO2 SerPl-sCnc 28.0 mmol/L Normal 03/28/2023 20 - 32 QU EST Sodium SerPl-sCnc 132.0 mmol/L Below low normal 03/28/2023 1 35 - 146 [facility] Glucose SerPl-mCnc 103.0 mg/dL Normal 03/28/2023 65 - 139 [facility] Globulin Ser Calc-mCnc 2.3 g/dL (calc) Normal 03/28/2023 1.9 - 3.7 [facility] ALT SerPl-cCnc 10.0 U/L Normal 03/28/2023 6 - 29 [facility] ALP SerPl-cCnc 69.0 U/L Normal 03/28/2023 37 - 153 [facility] Calcium SerPl-mCnc 9.0 mg/dL Normal 03/28/2023 8.6 - 10.4 [facility] Bilirub SerPl-mCnc 0.5 mg/dL Normal 03/28/2023 0.2 - 1.2 [facility] AST SerPl-cCnc 12.0 U/L Normal 03/28/2023 10 - 35 [facility] Potassium SerPl-sCnc 4.3 mmol/L Normal 03/28/2023 3.5 - 5 .3 [facility] Chloride SerPl-sCnc 95.0 mmol/L Below low normal 03/28/2023 98 - 110 [facility] Creat SerPl-mCnc 0.68 mg/dL Normal 03/28/2023 0.6 - 1 Q [facility] BUN/Creat SerPl SEE NOTE: Normal 03/28/2023 6 - [address] Albumin/Glob SerPl 1.7 (calc) Normal 03/28/2023 1 - 2.5 [facility] MCHC RBC Auto-mCnc 33.5 g/dL Normal 03/28/2023 32 - 36 [facility] RDW RBC Auto-Rto 13.7 % Normal 03/28/2023 11 - 15 QU EST MCH RBC Qn Auto 31.7 pg Normal 03/28/2023 27 - [address] Platelet # Bld Auto 362.0 Thousand/uL Normal 03/28/2023 1 40 - 400 [facility] RBC # Bld Auto 3.79 Million/uL Below low normal 03/28/2023 3 .8 - 5.1 [facility] MCV RBC Auto 94.5 fL Normal 03/28/2023 80 - 100 [facility] WBC # Bld Auto 10.3 Thousand/uL Normal 03/28/2023 3.8 - 1 0.8 [facility] Hct VFr Bld Auto 35.8 % Normal 03/28/2023 35 - 45 [facility] EST Hgb Bld-mCnc 12.0 g/dL Normal 03/28/2023 11.7 - 15.5 [facility] T PMV Bld Mayank-Hiro 9.8 fL Normal 03/28/2023 7.5 - 12.5 [facility] History of Medication Use Medication Directions Dispensed Refills Start Date End Date Stat ondansetron (ZOFRAN) 4 MG tablet TAKE 1 TABLET(4 MG) BY MOUTH DAILY NEEDED FOR NAUSEA 12/27/2023 active famotidine (PEPCID) 40 MG tablet TAKE 1 TABLET(40 MG) BY MOUTH EVERY EVENING 09/04/2023 active methocarbamol (ROBAXIN) 750 MG tablet Take 1 tablet (750 mg total) by mouth 4 (four) times a day as needed (for muscle spasm.). 12/21/2022 active ondansetron (ZOFRAN-ODT) 4 MG disintegrating tablet Take 1 tablet (4 mg total) by mouth every 6 (six) hours as needed for nausea. 12/21/2022 active oxyCODONE (ROXICODONE) 5 MG immediate release tablet Take 1 tablet (5 mg total) by mouth every 4 (four) hours as needed for pain. 12/21/2022 active pantoprazole (PROTONIX) 40 MG tablet Take 1 tablet (40 mg total) by mouth daily. 11/28/2022 active simethicone (MYLICON) 80 MG chewable tablet Chew 1 tablet (80 mg total) by mouth as needed. 11/28/2022 active prednisoLONE acetate (PRED FORTE) 1 % ophthalmic suspension SHAKE LIQUID AND INSTILL 1 DROP IN RIGHT EYE THREE TIMES DAILY 09/18/2022 active Calcium 600-5 MG-MCG TABS Take 1 tablet by mouth 2 (two) times a day. 08/21/2022 active clindamycin (CLEOCIN) 300 MG capsule Take 2 tabs one hour prior to dental procedure 04/25/2022 active flecainide (TAMBOCOR) 50 MG tablet 2 tablets (100 mg total) every night at bedtime. 01/04/2022 active folic acid (FOLVITE) 400 MCG tablet Take 1 tablet (400 mcg total) by mouth daily. 09/24/2021 active metoprolol succinate (TOPROL-XL) 24 hr tablet 50 mg Take 1 tablet (50 mg total) by mouth daily. 01/19/2021 active clindamycin HCl 300 mg capsule TAKE 1 CAPSULE BY MOUTH FOUR TIMES DAILY FOR 10 DAYS 4 completed doxycycline monohydrate 100 mg tablet TAKE 1 TABLET BY MOUTH TWICE DAILY FOR 7 DAYS 4 completed hydroxyzine HCl 10 mg tablet TAKE 1 TABLET BY MOUTH AT BEDTIME NEEDED FOR ITCHING OR ANXIETY 4 completed mupirocin 2 % topical ointment APPLY 1 A SMALL AMOUNT IN THE NASAL CAVITY 3 TIMES DAILY AFTER WARM COMPRESSES 4 completed ofloxacin 0.3 % eye drops INSTILL 1 DROP IN RIGHT EYE FOUR TIMES DAILY 4 active oxycodone 5 mg tablet 4 active pantoprazole 40 mg tablet,delayed release TAKE 1 TABLET BY MOUTH TWICE DAILY 4 active prednisone 20 mg tablet TAKE 1 TABLET BY MOUTH TWICE DAILY FOR 5 DAYS 4 completed meloxicam 15 mg tablet TAKE 1 TABLET BY MOUTH DAILY. STOP NAPROXEN AND CELECOXIB 3 active amitriptyline 10 mg tablet TAKE 2 TABLETS BY MOUTH AT BEDTIME NEEDED FOR SLEEP 3 active cefadroxil 500 mg capsule 3 completed celecoxib 200 mg capsule 3 completed chlordiazepoxide 25 mg capsule TAKE TWO CAPSULES BY MOUTH AT BEDTIME 3 completed esomeprazole magnesium 40 mg capsule,delayed release TAKE ONE CAPSULE BY MOUTH EVERY DAY IN THE MORNING BEFORE BREAKFAST 3 active methocarbamol 750 mg tablet 3 active naproxen 375 mg tablet TAKE 1 TABLET BY MOUTH TWICE DAILY 3 completed ondansetron 4 mg disintegrating tablet 3 completed trazodone 100 mg tablet 3 completed triamcinolone acetonide 0.5 % topical ointment APPLY TOPICALLY TO THE AFFECTED AREA TWICE DAILY FOR 14 DAYS 3 completed zolpidem 5 mg tablet TAKE 1 TABLET BY MOUTH AT BEDTIME NEEDED FOR INSOMNIA 3 active betamethasone dipropionate 0.05 % topical cream APPLY TOPICALLY EVERY MORNING AND EVERY EVENING FOR RED PATCHES ON CHEST FOR 10 TO 14 DAYS 3 completed erythromycin 5 mg/gram (0.5 %) eye ointment APPLY TO LEFT EYE TWICE DAILY DIRECTED 3 completed escitalopram 10 mg tablet TAKE 1 TABLET BY MOUTH DAILY. TAKE WITH 5MG TABLET FOR DAILY DOSE OF 15MG DAILY. 3 completed escitalopram 5 mg tablet TAKE 1 TABLET BY MOUTH DAILY. TAKE WITH 10MG TABLET FOR TOTAL DOSE OF 15MG DAILY. 3 completed Paxlovid 300 mg (150 mg x 2)-100 mg tablets in a dose pack TK 2 NIRMATRELVIR TS AND 1 RITONAVIR T TOGETHER PO BID FOR 5 DAYS BID FOR 5 DAYS 3 completed prednisone 2.5 mg tablet TAKE 3 TABLETS BY MOUTH EVERY DAY 3 active sertraline 50 mg tablet TAKE 1/2 TABLET BY MOUTH DAILY FOR 1 WEEK. INCREASE TO 1 TABLET DAILY 3 completed valacyclovir 1 gram tablet 3 completed alendronate 70 mg tablet TAKE 1 TABLET BY MOUTH EVERY 7 DAYS active cetirizine 10 mg tablet TAKE 1 TABLET BY MOUTH DAILY active desmopressin 0.2 mg tablet TAKE ONE TABLET BY MOUTH AT BEDTIME active famotidine 40 mg tablet active flecainide 50 mg tablet TAKE 2 TABLETS BY MOUTH EVERY MORNING AND 1 TABLET BY MOUTH EVERY EVENING active fluticasone propionate 50 mcg/actuation nasal spray,suspension active folic acid 400 mcg tablet TAKE 1 TABLET BY MOUTH EVERY DAY active lorazepam 0.5 mg tablet TAKE 1 TABLET BY MOUTH DAILY NEEDED FOR ANXIETY active methotrexate sodium 2.5 mg tablet TAKE 6 TABLETS BY MOUTH 1 TIME A WEEK ON THE SAME DAY. STOP FOR ANY COLD OR INFECTION active metoprolol succinate ER 50 mg tablet,extended release 24 hr TAKE 1 TABLET BY MOUTH DAILY active Miebo 100 % eye drops ac tive ondansetron HCl 4 mg tablet active pantop[address]ole DR 40 mg granules delayed-release for susp in packet active prednisolone acetate 1 % eye drops,suspension SHAKE BOTTLE AND INSTILL 1 DROP INTO THE RIGHT EYE EVERY MORNING active simethicone 80 mg chewable tablet CHEW 1 TABLET BY MOUTH DAILY NEEDED FOR GAS PAIN/BLOATING active zolpidem ER 6.25 mg tablet,extended release,multiphase TAKE 1 TABLET BY MOUTH AT BEDTIME NEEDED FOR SLEEP active desmopressin (DDAVP) 0.2 MG tablet Take 1 tablet (200 mcg total) by mouth every night at bedtime. For OAB active IRON-VITAMIN C PO Take 125 mg by mouth daily. active methotrexate 2.5 MG tablet Take 6 tablets (15 mg total) by mouth every 7 days. EVERY SUNDAY active Multiple Vitamin (Multi Vitamin Daily) TABS Take by mouth daily. active Zinc 30 MG CAPS Take 15 mg by mouth daily. FORMENTED ZINC COMPLEX active Zolpidem Tartrate (AMBIEN CR PO) Take 6.25 mg by mouth every night at bedtime as needed. active Allergies Allergen Reaction Severity Comment Documented Date Source Statu s DOXYCYCLINE HIVES Hives 09/12/2019 [facility] active AMOXICILLIN-POT CLAVULANATE OTHER (SEE COMMENTS) Diarrhea, nausea, vomitting 04/14/2019 [facility] active Problems Problem Status Onset Date Problem Type Date of Resolution Source History of gastroesophageal reflux (GERD) active 2022-11-22 ProblemAct [facility] History of hypertension active 2022-11-22 ProblemAct [facility] Abnormal platelet function active 2021-10-17 ProblemAct [facility] History of hyperlipidemia active 2022-11-22 ProblemAct [facility] active EncounterDiagnosisAct [facility] Other specified hypoglycemia active 2005-04-19 ProblemAct [facility] History of anemia active 2022-11-22 ProblemAct [facility] Glaucoma active 2022-11-22 ProblemAct [facility] Atrial fibrillation active 2016-03-27 ProblemAct [facility] Esophageal reflux active 2017-11-12 ProblemAct [facility] Mycoplasma pneumonia active 2014-04-30 ProblemAct [facility] Pulmonary nodules active 2014-10-16 ProblemAct [facility] Rheumatoid arthritis involving multiple sites with positive rheumatoid factor active 2021-10-17 ProblemAct [facility] Bruising active 2021-10-17 ProblemAct [facility] Scalp abrasion active EncounterDiagnosisAct [facility] Anxiety and depression active 2022-11-22 ProblemAct [facility] Primary osteoarthritis of both first carpometacarpal joints active 2017-02-19 ProblemAct [facility] Seropositive rheumatoid arthritis active 2021-02-08 ProblemAct [facility] Epigastric pain active 2023-03-[address] [facility] Gallstones active 2016-01-13 ProblemAct [facility] Disorder of bone and cartilage active 2005-04-19 ProblemAct [facility] Overactive bladder active 2022-11-22 ProblemAct [facility] Viral meningitis active 2005-04-19 ProblemAct [facility] Hallux valgus, acquired, bilateral active EncounterDiagnosisAct [facility] Skeletal muscle tender active 2023-10-01 ProblemAct [facility] Osteoarthritis of right knee joint active 2022-10-27 ProblemAct [facility] Pain of knee region active 2023-10-01 ProblemAct [facility] Arthritis of knee active 2022-09-12 ProblemAct [facility] History of right total knee replacement active 2023-01-09 ProblemAct [facility] Immunizations Vaccine Date Source Lot Number Status Covid-19 ([employer]) Dilution Required 01/05/2022 [facility] completed Covid-19 ([employer]) Dilution Required 08/10/2021 [facility] completed Covid-19 ([employer]) Dilution Required 03/21/2021 [facility] completed Covid-19 ([employer]) Dilution Required 08/20/2020 [facility] completed Covid-19 (Pfizer) Dilution [facility] Encounters Encounter Type Encounter Reason Primary Diagnosis Location Date Ambulatory [facility] 08/26/2024 Emergency Unspecified fall, initial encounter Unspecified fall, initial encounter [facility] 01/28/2024 Ambulatory [facility] 12/04/2023 Ambulatory [facility] 09/28/2023 Ambulatory [facility] 09/27/2023 Ambulatory [facility] 09/10/2023 Ambulatory Hallux valgus (acquired), right foot Hallux valgus (acquired), right foot [facility] 05/29/2023 Ambulatory [facility] 04/02/2023 Ambulatory [facility] 01/31/2023 Ambulatory [facility] 01/03/2023 Ambulatory [facility] 01/03/2023 Ambulatory Overactive bladder Overactive bladder [facility] 12/20/2022 Emergency Epigastric pain Epigastric pain [facility] 12/06/2022 Ambulatory [facility] 11/13/2022 Ambulatory [facility] 10/27/2022 Ambulatory [facility] 09/13/2022 Ambulatory [facility] 09/12/2022 Ambulatory [facility] 09/12/2022 Ambulatory [facility] 09/12/2022 Ambulatory [facility] 09/07/2022 Ambulatory [facility] 09/07/2022 Ambulatory [facility] 09/07/2022 Ambulatory [facility] 07/26/2022 Care Team Organization Name Specialty Phone Email Start Date End Da te [facility] 01/28 [facility] 05/29/2023 [facility] 05/29/2023 [facility] 05/20/2023 [facility] 05/20/2023 [facility] 04/10/2023 04/10/2023 [facility] 12/07/2022 11/11/2024 [facility] 023 12/06/2022 [facility] 11/19/2022 [facility] 11/13/2022 11/13/2022 [facility] JESSICA ABREU Primary Care 03/30/2022 12/17/2023
--- OUTSIDE RECORDS SUMMARY | 2025-02-10 10:25 | XMS_ITS | Encounter Summary ---
Author Organization [facility] Address [address] [place] [address] Care Team Providers Care Utility Porter Name Role Phone Krista Galvan MD Primary Care Provider [phone] Encounter Details Date Type Department Care Team ([facility] st Contact Info) Description 05/30/2023 Scanned Document [facility] [place] [address] Jewel Boyer MD [address] [place] [address] Social History Tobacco Use Types Packs/Day Years Used Date Smoking Tobacco: Never Assessed Comments Unknown Sex and Gender Information Value Date Recorded Sex Assigned at Not on file Legal Sex Female 12:22 PM EDT Gender Identity Not on file Sexual Orientation Not on file documented as of this encounter Plan of Treatment Not on file documented as of this encounter Visit Diagnoses Not on filedocumented in this encounter Care Teams Utility Porter Relationship Specialty Start Date End Date Krista Galvan MD [address] [place] [address] [address] [place] [address] PCP - General 04/09/23 documented as of this encounter
--- OUTSIDE RECORDS SUMMARY | 2025-02-10 10:25 | XMS_ITS | Patient Health Record ---
Author Organization [facility] Address [address] [facility] [address] [place] [address] Care Team Providers Care Auto Bench Mechanic Name Role Phone Krista Galvan Primary Care Provider MAXIM Sweeney Unavailable [phone] Allergies Allergen (clinical drug ingredient) Drug/Non Drug [...] Problem Status W/U Status Risk Notes Problem Acquired hallux rigidus (4529920) Acquired hallux rigidus of right foot (M20.21) Active confirmed Problem Rheumatoid arthritis (72402381) Rheumatoid arthritis involving multiple sites with positive rheumatoid factor (M05.79) Active confirmed Problem Localized, primary osteoarthritis of the ankle and/or foot (976042839) 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 Plan Of Treatment No Information Insurance Providers Payer Name Payer Address Payer Phone Subscriber Number Group Number Insured Name Patient Relationship to Insured Coverage Start Date Coverage End Date [employer] of [place] [address] [place] [address] [id number] Crystal LAM Self - patient is the insured [employer] [address] [place] [address] [phone] [id number] Crystal LAM Self - patient is the insured Medical [...] 09/2017 Left knee arthroscopy 2018 Tubal ligation [place] Unlisted Procedure Anterior Segment E ye 10/06/2006 [facility]J HLX VLGS BNCTY SESMDC W/DOUBLR OSTEOTOMY [place] Unlisted Procedure Hands/ Fingers- for cystic swelling in right wrist-tenosynovitis [place] Upper GI Endoscopy preformed 11/17/19 15 [place] Upper GI Endoscopy preformed 02/08/20 19
--- OUTSIDE RECORDS SUMMARY | 2025-02-10 10:25 | XMS_ITS | Clinical Summary ---
Author Organization [facility] Address [address] [place] [address] Care Team Providers Care Head Of Sales Promotion Name Role Phone Krista Galvan MD Primary Care Provider Allergies Active Allergy Reactions Criticality Noted Date [...] 2 12/27/2023 Active famotidine (PEPCID) 40 MG tabletIndications:Biranna terrance ulcer, unspecified chronicity, unspecified whether gastric [...] Mycoplasma pneumonia 04/30/2014 Overview: Dr. Mukesh Costello ([facility]), treated on chronic Clarithromycin Disorder of bone and cartilage 04/19/2005 Other specified hypoglycemia 04/19/2005 Viral meningitis 04/19/2005 Overview: several times Immunizations Name Administration Dates Next Due Covid-19 ([employer]) Dilution Required 11/2021,08/10/2021,03/21/2021,08/21/19,07/23/2020 Family History Medical History [...] (DEXA Scan) 01/01/2017 COVID-19 Vaccine ( season) 2024 01/05/2022, 08/10/2021, 03/21/2021, Additional history exists Influenza [...] this topic Medical Devices Implanted Type Area Log Roper Device Identifier Shelf Expiration Date Model / Serial / Lot Cement Bone Surg Simplex Radiopq Stry-Howm 2811-8-898-114 092 - [id number] Implanted:Qty: 1 on 01/19/2022 by Tyrone Limon MD at [facility] Left: Knee [employer] [id number] 03/29/2023 6191-1-010 / / [id number] Cement Bone Surg Simplex Radiopq Stry-Howm [id number] 092 - [id number] Implanted:Qty: 1 on 01/19/2022 by Tyrone Limon MD at [facility] Left: Knee [employer] [id number] 03/29/2023 6191-1-010 / / [id number] Tibial Bearing Insert Cs 12mm Stry-Howm 2206-M-326-E-[id number] 11381 - [id number] Implanted:Qty: 1 on 01/19/2022 by Tyrone Limon MD at [facility] Left: Knee [employer] [id number] 05/23/2026 5531-G-412 -E / / [id number] Knee Tib Baseplate Sz 4 Rt-Lt Stry-Howm 8337-J-708-545 913 - [id number] Implanted:Qty: 1 on 01/19/2022 by Tyrone Limon MD at [facility] Left: Knee [employer] [id number] 09/21/2026 5521-B-400 / / [id number] Knee Compon Fem Cmnt Sz4 L Stry-How 9748-[id number] 181 - [id number] Implanted:Qty: 1 on 01/19/2022 by Tyrone Limon MD at [facility] Left: Knee [employer] [id number] 08/21/2026 5510-F-401 / / [id number] Knee Pat Asymmetric X3 [id number] Stry-Howm 4034-X-048-E-2 44375 - [id number] Implanted:Qty: 1 on 01/19/2022 by Tyrone Limon MD at [facility] Left: Knee [employer] [id number] 10/05/2026 5551-G-320 -E / / [id number] Knee Tib Baseplate Sz 4 Rt-Lt Stry-Howm 1021-G-398-545 913 - [id number] Implanted:Qty: 1 on 12/20/2022 by Tyrone Limon MD at [facility] Right: Knee [employer] [id number] 07/10/2027 5521-B-400 / / [id number] Knee Tib Insrt Cr-X3 [id number] Stry-Howm 1129-[id number]-[id number] 525 - [id number] Implanted:Qty: 1 on 12/20/2022 by Tyrone Limon MD at [facility] Right: Knee [employer] [id number] 10/13/2025 5530-G-411 / / [id number] Knee Pat Asymmetric X3 [id number] Stry-Howm 9280-K-180-E-2 29115 - [id number] Implanted:Qty: 1 on 12/20/2022 by Tyrone Limon MD at [facility] Right: Knee [employer] [id number] 09/17/2027 5551-G-320 -E / / [id number] Cement Bone Surg Simplex Radiopq Stry-Howm [id number] 092 - [id number] Implanted:Qty: 1 on 12/20/2022 by Tyrone Limon MD at [facility] Right: Knee [employer] [id number] 04/29/2025 6191-1-010 / / [id number] Cement Bone Surg Simplex Radiopq Stry-Howm [id number] 092 - [id number] Implanted:Qty: 1 on 12/20/2022 by Tyrone Limon MD at [facility] Right: Knee [employer] [id number] 04/29/2025 6191-1-010 / / [id number] Knee Compon Fem Cmnt Sz4 R Stry-Howm 0481-[id number]-[id number] 182 - [id number] Implanted:Qty: 1 on 12/20/2022 by Tyrone Limon MD at [facility] Right: Knee [employer] [id number] 10/04/2027 5510-F-402 / / [id number] Advance Directives For more information, please contact: [phone] Latest Code Status on File Code Status Date Activated Date Inactivated Comments Full Code 12/20/2022 1:22 PM 12/21/2022 5:31 PM This code status was ascertained in the following way: discussion with healthcare entry level account representative . Code Status History Code Status Date [...] way: discussion with patient . Care Teams Head Of Sales Promotion Relationship Specialty Start Date End Date Krista Galvan MD [address] [place] [phone] PCP - General Internal Medicine 01/28/24
== END 2025-02-10 09:56 | disposition home or self-care (01) ==
LOC: HO.HSM 09:27
PROVIDERS: PCP Nurse Practitioner Family; Visit Provider Psychiatry & Neurology Neurology
DX: G62.9 Polyneuropathy, unspecified (principal); M06.9 Rheumatoid arthritis, unspecified; M17.0 Bilateral primary osteoarthritis of knee
CPT/HCPCS: 99214

== ENCOUNTER → 2025-02-10 09:27 | Outpatient (BNVA) | payer MEDICARE, SELFPAY | PROVIDERS: PCP Nurse Practitioner Family; Visit Provider Psychiatry & Neurology Neurology | DX: G62.9 Polyneuropathy, unspecified (principal); M06.9 Rheumatoid arthritis, unspecified; M17.0 Bilateral primary osteoarthritis of knee; Z96.659 Presence of unspecified artificial knee joint; Z79.899 Other long term (current) drug therapy | CPT/HCPCS: 99212 ==